=== PATIENT | male | born 1940 | race Caucasian/White ===

== ENCOUNTER 2019-06-30 11:15 | Emergency (ER) | payer MEDICARE, SELFPAY ==
--- NOTE | 2019-06-30 11:27 | ED.URI ---
HPI - URI/Sore Throat General Chief Complaint: Upper Respiratory Infection Stated Complaint: sinus/allergies Time Seen by Provider: 06/30/19 11:40 Source: patient and RN notes reviewed Mode of arrival: ambulatory Limitations: no limitations History of Present Illness HPI Narrative: 78-year-old male presents with concern for 2-month history of sinus congestion, postnasal drainage, rhinorrhea, sinus pressure. Reports he has been taking Coricidin with no relief. Denies taking any antihistamines. Denies fever, cough, shortness of breath, body aches, sore throat. MD elicited complaint: nasal congestion Related Data Home Medications Medication Instructions Recorded Confirmed Aspir-81 06/30/19 Ocuvite 06/30/19 amlodipine 06/30/19 atorvastatin 06/30/19 cyclosporine [Restasis] 06/30/19 cyclosporine [Restasis] 1 drp OPHTHALMIC (EYE) Q12H 06/30/19 06/30/19 tamsulosin mg PO 06/30/19 Allergies Allergy/AdvReac Type Severity Reaction Status Date / Time BEE STINGS Allergy Severe SEVERE Uncoded 02/24/14 10:50 LOCAL REACTION Review of Systems Review of Systems: Narrative: CONSTITUTIONAL: Denies malaise, chills, sweats, or fever. EYES: Denies visual changes, redness, or discharge. ENT: Reports rhinorrhea, congestion, sinus pain, ear fullness. Denies otalgia and sore throat. CARDIOVASCULAR: Denies chest pain, palpitations, or edema. RESPIRATORY: Denies cough or dyspnea. GASTROINTESTINAL: Denies abdominal pain, nausea, vomiting, diarrhea SKIN: Denies rash or itching. MUSCULOSKELETAL: Denies myalgia. NEUROLOGIC: Denies headache. All systems reviewed & are unremarkable except as noted in HPI and below PMFSH Comments At time of signature, agree with nursing past medical, surgical, social and family history. There is no relevant family history pertinent to the presenting complaint Exam Narrative: Exam Narrative: GENERAL: Well-appearing, well-nourished, and in no acute distress. HEAD: Normocephalic EYES: PERRLA, conjunctivae clear ENT: Nares clear, turbinates edematous and erythematous, purulent discharge. Mucous membranes moist. TM pearly noland with dull light reflex bilaterally; no tragal tenderness. Oropharynx not erythematous without lesions. Tonsils not enlarged and without exudate, no drooling, no hoarseness, no trismus, uvula midline. NECK: Supple. No lymphadenopathy CHEST: Clear to auscultation, breath sounds equal. No wheezing, rhonchi, rales, or stridor. No respiratory distress, speaks in full sentences. HEART: Regular rate and rhythm. No murmur heard. SKIN: Warm, dry, no rash. NEURO: Alert and oriented x3. PSYCH: Normal mood and affect Course Course Emergency Course: Patient is aware of diagnosis, understands and agrees to treatment plan. Anticipatory guidance given. Patient agrees to follow-up as directed and is aware of reasons to seek care at the emergency department. Portions of this record may have been created with voice recognition software Vital Signs Vital signs: Vital Signs Temperature 98.2 F 06/30/19 11:31 Pulse Rate 73 06/30/19 11:31 Respiratory Rate 16 06/30/19 11:31 Blood Pressure 127/72 06/30/19 11:31 Pulse Oximetry 97 06/30/19 11:31 Temperature 98.2 F 06/30/19 11:31 Pulse Rate 73 06/30/19 11:31 Respiratory Rate 16 06/30/19 11:31 Blood Pressure 127/72 06/30/19 11:31 Pulse Oximetry 97 06/30/19 11:31 Reviewed. MDM - URI/Sore Throat MDM Narrative Medical decision making narrative: Differential diagnosis considered: Strep pharyngitis, allergic rhinitis, upper respiratory tract infection, sinusitis, rhinosinusitis, nasopharyngitis. viral pharyngitis, otitis media, otitis externa, pneumonia, bronchitis, viral cough syndrome, viral syndrome, and influenza. Exam findings show no acute concerns or changes; patient is non-toxic appearing and is in no distress. Patient is appropriate for outpatient treatment and follow-up. Critical Care Time Critical Car
[2019-06-30 11:31] VITALS: BP 127/72; PULSE 73; RESP 16; TEMP 36.8; O2SAT 97
== END 2019-06-30 11:57 | disposition home or self-care (01) ==
PROVIDERS: Emergency Provider Nurse Practitioner; PCP Internal Medicine
DX: J01.90 Acute sinusitis, unspecified (principal); B96.89 Other specified bacterial agents as the cause of diseases classified elsewhere; E78.00 Pure hypercholesterolemia, unspecified; I10 Essential (primary) hypertension; N40.0 Benign prostatic hyperplasia without lower urinary tract symptoms; H04.129 Dry eye syndrome of unspecified lacrimal gland
CPT/HCPCS: 99213; G0463

== ENCOUNTER 2019-12-06 12:50 | Emergency (ER) | payer MEDICARE, SELFPAY ==
--- NOTE | ~2019-12-06 | XR_ITS ---
EXAMINATION: XR chest 2V EXAM DATE: 12/06/2019 14:16 INDICATION: Frontal wall intermittent chest pain, symptoms 2 weeks. TECHNIQUE: Frontal and lateral projections of the chest obtained and reviewed. Comparison is made to prior examination from 12/09/2017. FINDINGS: The lungs are clear. There are no pleural effusions. The cardiomediastinal silhouette is within normal limits. There is no pneumothorax suspected. The bones and soft tissues are unremarkab le. IMPRESSION: No acute cardiopulmonary findings. Reviewed, dictated and finalized at location A.
--- NOTE | 2019-12-06 12:53 | ECG_ITS ---
Measurements Intervals [place] Rate: 65 P: 15 GA: 146 QRS: -16 QRSD: 96 T: 25 QT: 388 QTc: 404 Interpretive Statements SINUS RHYTHM BASELINE WANDER- V1 NORMAL ECG Electronically Signed On 12-06-2019 12:58:19 CDT by Titus Thomas D.O.
[2019-12-06 12:56] VITALS: BP 146/73; PULSE 65; RESP 16; TEMP 36.5; O2SAT 100
[2019-12-06 13:17] LABS: Basophils Percent Auto 0.3 % (0.2-1.2); Eosinophils Percent Auto 0.5 % (0-4.4); Hematocrit 37.4 % (42.0-52.0); Hemoglobin 12.6 g/dL (14.0-18.0); Immature Granulocyte Absolute 0.01 K/mm3 (0.00-0.031); Immature Granulocyte Percent A 0.1 % (0-0.5); Lymphocytes Absolute Auto 1.91 K/mm3 (0.9-3.2); Lymphocytes Percent Auto 25.4 % (18.3-44.2); Mean Corpuscular HGB Conc 33.7 g/dl (32-36); Mean Corpuscular Hemoglobin 32.1 pg (26-34); Mean Corpuscular Volume 95.4 fl (80-100); Mean Platelet Volume 9.8 fl (7.4-10.4); Monocytes Absolute Auto 0.6 K/mm3 (0.1-0.6); Monocytes Percent Auto 7.7 % (2.6-8.5); Platelet Count Result 199 k/mm3 (150-375); Red Blood Count 3.92 M/mm3 (4.6-6.20); Red Cell Distribution Width 12.8 % (11.5-14.5); White Blood Count 7.5 K/mm3 (4.5-10.0)
[2019-12-06 13:21] LABS: Partial Thromboplastin Time 26.4 SECONDS (22.3-36.8); Prothrombin Time 12.7 Seconds (11.1-14.7)
[2019-12-06 13:28] LABS: Anion Gap 7 mmol/L (8-16); Blood Urea Nitrogen 31 mg/dL (9-20); Calcium 8.9 mg/dL (8.4-10.2); Carbon Dioxide 29 mmol/L (22-30); Chloride 106 mmol/L (98-107); Estimated CRCL calculation 41 ml/min; Estimated Glomerular Filt Rate 58; Glucose 106 mg/dL (75-110); Sodium 142 mmol/L (137-145)
[2019-12-06 13:38] LABS: Troponin I < 0.012 ng/mL (0.000-0.034)
[2019-12-06 15:12] VITALS: BP 190/74; PULSE 68; RESP 18; TEMP 36.7; O2SAT 100
[2019-12-06] MEDS: ASPIRIN 81 MG CHEWABLE TABLET 324 MG PO (15:19)
--- NOTE | 2019-12-06 16:03 | ED.GENADULT ---
HPI - General Adult General Chief complaint: Chest Pain Stated complaint: cp while golfing Time Seen by Provider: 12/06/19 15:17 Source: patient History of Present Illness HPI narrative: Patient is a 78 y/o male complaining of mid sternal chest pain starting approximately 4 hours ago. He states that he was golfing when it occurred. He states that his pain was like a pressure and he rates it as 5/10. There is no pain radiation, no alleviating or exacerbating factor. His pain has resolved spontaneously. It lasted approximately 1 hour. He has no SOB, nausea, vomiting or sweating. Related Data Home Medications Medication Instructions Recorded Confirmed Aspir-81 06/30/19 Ocuvite 06/30/19 amlodipine 06/30/19 atorvastatin 06/30/19 Allergies Allergy/AdvReac Type Severity Reaction Status Date / Time BEE STINGS Allergy Severe SEVERE Uncoded 08/03/19 13:28 LOCAL REACTION Review of Systems Constitutional: Constitutional: Denies chills, Denies fever(s), Denies headache(s) and Denies weakness Eyes: Eyes: Denies blurry vision ENT: Denies headache(s) and Denies neck pain Cardiovascular: Cardiovascular: Reports chest pain and Denies dyspnea Respiratory: Respiratory: Denies cough and Denies dyspnea Gastrointestinal: Gastrointestinal: Denies abdominal pain, Denies diarrhea, Denies nausea and Denies vomiting Genitourinary: Genitourinary: Denies hematuria and Denies dysuria Musculoskeletal: Musculoskeletal: Denies back pain and Denies neck pain Neurologic: Denies headache(s) and Denies weakness Exam Const: General: no acute distress and well developed Orientation/consciousness: oriented to person, oriented to place, oriented to time and patient oriented x3 HENMT: Head: normocephalic Ears: external ears normal General nose exam: Normal external nose present Eyes: General: appearance normal, both eyes and all related structures Conjunctivae: conjunctivae normal Neck: Neck: normal visual inspection and full ROM Chest: Chest palpation & inspection: normal inspection of the chest and no tenderness Resp: Effort & Inspection: normal respiratory effort Auscultation: clear to auscultation bilaterally Cardio: Rate: regular rate Rhythm: regular rhythm GI: GI Palp: No abdominal tenderness and Yes Soft to palpation Skin: General skin exam: normal color and turgor normal Neuro: General: oriented to person, oriented to place, oriented to time and patient oriented x3 Cognition (Neuro): normal cognition Extrem: General: normal to inspection, full ROM and no pedal edema Psych: Appearance: grossly normal Mental Status: mental status grossly normal Affect: normal affect Course Reevaluation(s) Reevaluation #1: Rechecked. Patient feels well with no chest pain. 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 Instructed patient to return if his symptoms worsen. Date: 12/06/19 Time: 17:55 Vital Signs Vital signs: Vital Signs Temperature 36.5 C 12/06/19 12:56 Pulse Rate 65 12/06/19 12:56 Respiratory Rate 16 12/06/19 12:56 Blood Pressure 146/73 H 12/06/19 12:56 Pulse Oximetry 100 12/06/19 12:56 Temperature 36.7 C 12/06/19 15:12 Pulse Rate 78 12/06/19 18:08 Respiratory Rate 18 12/06/19 18:08 Blood Pressure 132/78 12/06/19 18:08 Pulse Oximetry 99 12/06/19 18:08 Medical Decision Making Vital Signs Vital Signs: Vital Signs Temperature 36.5 C 12/06/19 12:56 Pulse Rate 65 12/06/19 12:56 Respiratory Rate 16 12/06/19 12:56 Blood Pressure 146/73 H 12/06/19 12:56 Pulse Oximetry 100 12/06/19 12:56 Temperature 36.7 C 12/06/19 15:12 Pulse Rate 78 12/06/19 18:08 Respiratory Rate 18 12/06/19 18:08 Blood Pressure 132/78 12/06/19 18:08 Pulse Oximetry 99 12/06/19 18:08 Lab Data Result diagrams: 12/06/19 13:02 12/06/19 13:02
[2019-12-06 16:38] LABS: Troponin I < 0.012 ng/mL (0.000-0.034)
[2019-12-06 18:08] VITALS: BP 132/78; PULSE 78; RESP 18; O2SAT 99
== END 2019-12-06 18:09 | disposition home or self-care (01) ==
PROVIDERS: Emergency Medicine; Emergency Provider Emergency Medicine; PCP Internal Medicine
DX: R07.89 Other chest pain (principal); Z79.82 Long term (current) use of aspirin
CPT/HCPCS: 36415; 71046; 80048; 84484; 85025; 85610; 85730; 93005; 99284; A9270

== ENCOUNTER 2020-01-05 01:49 | Outpatient (CLI) | payer MEDICARE, SELFPAY ==
[2020-01-05 18:17] LABS: SARS-CoV-2 RNA PCR Negative
== END 2020-01-05 01:50 | disposition home or self-care (01) ==
LOC: ANHCOVIDDT 01:50
PROVIDERS: PCP Internal Medicine; Visit Provider Internal Medicine Gastroenterology
DX: Z01.812 Encounter for preprocedural laboratory examination (principal); Z20.828 Contact with and (suspected) exposure to other viral communicable diseases
CPT/HCPCS: 87635; C9803; U0003

== ENCOUNTER 2020-01-06 01:27 | Day surgery (SDC) | payer MEDICARE, SELFPAY ==
[2020-01-04 12:23] VITALS: BMI 25.1
--- NOTE | 2020-01-05 08:10 | P.PNAN_ITS ---
Anes - Initial Pre Proc Eval Procedure: Operation Date: 01/06/20 11:00 Proposed Procedures p Esophagogastroduodenoscopy - Nick Silva MD Date/Time: 01/05/20 08:10 Surgeon: Nick Silva MD Pre Op Diagnosis: Epigastric Pain Patient Data Age: 79 Gender: M Height: 1.7 m Weight: 72.7 kg Allergies Allergy/AdvReac Type Severity Reaction Status Date / Time BEE STINGS Allergy Severe SEVERE Uncoded 01/04/20 13:42 LOCAL REACTION Home Medications Medication Instructions Recorded Confirmed Type amlodipine 5 mg PO DAILY 06/30/19 01/04/20 History atorvastatin 80 mg PO DAILY 06/30/19 01/04/20 History aspirin [Adult Aspirin] 81 mg PO DAILY 01/04/20 01/04/20 History cyclosporine [Restasis] 1 drp OPHTHALMIC (EYE) BID 01/04/20 01/04/20 History vitamin A-vitamin C-vit E-min 1 tablet PO DAILY 01/04/20 01/04/20 History [Ocuvite] Patient hx anesthesia problems: none Family hx anesthesia problems: none [facility] Past Medical History Medical History (Updated 01/05/20 @ 08:10 by Armani Sandhu DO) Hyperlipidemia Hypertension Osteoarthritis PUD (peptic ulcer disease) Social History Social History Smoking status: Never smoker Alcohol intake: current Drinks per week: 4 Substance use: never Substance use type: does not use Living arrangements: with family Spiritual care concerns: No Anes - Eval Final PreProcedure Day of Procedure 01/05/20 08:10 Patient weight: overweight Heart: regular rate and rhythm Lungs: clear to auscultation and normal air movement Airway: Mallampati scale class II Neurological: alert and oriented Last oral intake: >/= 8 hours ASA classification: II Emergent: no Anesthetic plan: proceed Anesthesia type and monitoring: general GIVS and standard monitoring Informed Consent: The patient's anesthetic plan and its attendant risks and benefits were discussed with the patient/family/POA. Questions were solicited and answers provided to the satisfaction of the patient/family/POA.
[2020-01-06 10:14] VITALS: BP 146/65; PULSE 60; RESP 12; TEMP 36.7; O2SAT 100
--- NOTE | 2020-01-06 10:21 | PM.HPGS ---
History of Present Illness History of Present Illness Consent: Risks, benefits, and alternatives have been discussed and questions answered. Patient agrees to proceed with procedure. Chief complaint: Epigastric Pain Narrative: Luis Miguel Anguiano is a 79 year old W male referred for gastroscopy for evaluation of atypical noncardiac chest pain question gastroesophageal reflux and epigastric pain. Patient had cardiac evaluation that was negative. He has had no nausea vomiting or hematemesis. Denies any nonsteroidal inflammatory drugs on a regular basis. No dysphagia odynophagia. Patient is scheduled for an ultrasound of his gallbladder tomorrow had blood work checked recently results are pending. patient seen in the office 2 days ago with unremarkable exam PMFSH Past Medical History Medical History Hyperlipidemia Hypertension Osteoarthritis PUD (peptic ulcer disease) Social History Social History Smoking status: Never smoker Alcohol intake: current Drinks per week: 4 Substance use: never Substance use type: does not use Living arrangements: with family Spiritual care concerns: No Meds Home Medications and Allergies Home Medications Medication Instructions Recorded Confirmed Type amlodipine 5 mg PO DAILY 06/30/19 01/06/20 History atorvastatin 80 mg PO DAILY 06/30/19 01/04/20 History aspirin [Adult Aspirin] 81 mg PO DAILY 01/04/20 01/04/20 History cyclosporine [Restasis] 1 drp OPHTHALMIC (EYE) BID 01/04/20 01/04/20 History vitamin A-vitamin C-vit E-min 1 tablet PO DAILY 01/04/20 01/04/20 History [Ocuvite] Allergies Allergy/AdvReac Type Severity Reaction Status Date / Time BEE STINGS Allergy Severe SEVERE Uncoded 01/06/20 10:12 LOCAL REACTION Vital Signs Vital Signs - 24 hr 01/06/20 10:14 Temperature 36.7 C Pulse Rate 60 Respiratory Rate 12 Blood Pressure 146/65 H Pulse Oximetry 100 Exam Const: Orientation/consciousness: patient oriented x3 Resp: Auscultation: clear to auscultation bilaterally Cardio: Rate: regular rate Rhythm: regular rhythm Heart sounds: no murmurs GI: GI Palp: Yes Soft to palpation, No Tenderness to palpation present (GI), Yes No hepatosplenomegaly present and No Palpable mass present Auscultation: normal bowel sounds Neuro: General: patient oriented x3 and no focal motor deficits Extrem: General: no pedal edema Assessment and Plan Additional Plan EGD for evaluation of atypical chest pain epigastric pain and negative cardiac evaluation
[2020-01-06] MEDS: LACTATED RINGERS 1,000 ML 150 ML IV CONT (10:24)
[2020-01-06 11:16] VITALS: BP 112/63; PULSE 60; RESP 16; O2SAT 100
[2020-01-06 11:26] VITALS: BP 118/60; PULSE 62; RESP 18; O2SAT 100
[2020-01-06 11:36] VITALS: BP 120/62; PULSE 63; RESP 18; O2SAT 100
== END 2020-01-06 11:50 | disposition home or self-care (01) ==
PROVIDERS: PCP Internal Medicine; Visit Provider Internal Medicine Gastroenterology
PROC: 0DJ08ZZ Inspection of Upper Intestinal Tract, Via Natural or Artificial Opening Endoscopic (ICD-10-PCS; CPT 43235; principal; 2020-01-06 11:00)
DX: K29.50 Unspecified chronic gastritis without bleeding (principal); K29.80 Duodenitis without bleeding; I10 Essential (primary) hypertension; E78.5 Hyperlipidemia, unspecified; Z87.11 Personal history of peptic ulcer disease; Z79.82 Long term (current) use of aspirin
CPT/HCPCS: 43239; 87081; J7120

== ENCOUNTER → 2020-01-07 07:45 | Outpatient (CLI) | payer MEDICARE, SELFPAY ==
--- NOTE | ~2020-01-07 | US_ITS ---
EXAMINATION: US right upper quadrant DATE: 01/07/2020 08:18 INDICATION: Abdominal pain. TECHNIQUE: Multiple grayscale and Doppler ultrasound images of the abdomen were obtained. COMPARISON: None FINDINGS: The abdominal aorta is normal in caliber. The visualized portions of the head and body of t he pancreas are normal. The liver is normal without focal lesion. There is normal flow in main portal vein. The gallbladder is normal in size. No gallstones or gallbladder wall thickening. There was no sonographic Morris sign. The common duct is normal and measures 5 mm. IMPRESSION: 1. Normal right upper quadrant ultrasound. Reviewed, dictated and finalized at location A.
== END ==
PROVIDERS: PCP Internal Medicine; Visit Provider Internal Medicine Gastroenterology
DX: R10.9 Unspecified abdominal pain (principal)
CPT/HCPCS: 76705

== ENCOUNTER 2020-07-23 23:16 | Emergency (ER) | payer MEDICARE, SELFPAY ==
--- NOTE | ~2020-07-23 | CT_ITS ---
EXAMINATION: CT brain wo con DATE: 07/24/2020 00:41 INDICATION: Dizziness. TECHNIQUE: Computed tomography (CT) of the head was performed without intravenous contrast. The mA wa s adjusted according to patient size. Iterative reconstruction technique was employed. The dose-lengt h product was 681.00 mGy-cm. COMPARISON: Sinuses CT 08/01/2012 FINDINGS: There is no intracranial hemorrhage, acute infarction, or abnormal intracranial mass lesion . The ventricles are normal in size. There are likely changes of ocular lens replacement surgeries. T here is mucosal thickening in the paranasal sinuses. Right maxillary sinus demonstrates thickening an d sclerosis of the sinus moody and volume loss, consistent with chronic sinusitis. There is an old he aled left nasal bone fracture. The mastoid air cells are normal. There are likely changes of ocular l ens replacement surgeries. IMPRESSION: 1. Normal brain. 2. Chronic sinusitis. Reviewed, dictated and finalized at location A.
[2020-07-23 23:21] VITALS: BP 142/62; PULSE 61; RESP 13; TEMP 36.4; O2SAT 100
--- NOTE | 2020-07-23 23:28 | ECG_ITS ---
Measurements Intervals [place] Rate: 58 P: 51 [place]: 170 QRS: -1 QRSD: 101 T: 44 QT: 439 QTc: 431 Interpretive Statements SINUS BRADYCARDIA INCOMPLETE RIGHT BUNDLE BRANCH BLOCK BORDERLINE ECG Electronically Signed On 07-24-2020 6:21:31 CDT by Titus Thomas D.O.
[2020-07-24 00:53] VITALS: BP 134/53; PULSE 65; RESP 16; O2SAT 100
[2020-07-24] MEDS: SODIUM CHLORIDE 0.9% IV 1,000 ML 999 ML IV CONT (00:53)
[2020-07-24] MEDS: MECLIZINE HCL 25 MG TABLET PO (00:53)
[2020-07-24 01:23] LABS: Basophils Percent Auto 0.3 % (0.2-1.2); Eosinophils Absolute Auto 0.1 K/mm3 (0-0.3); Eosinophils Percent Auto 1.2 % (0-4.4); Hematocrit 38.6 % (42.0-52.0); Hemoglobin 12.8 g/dL (14.0-18.0); Immature Granulocyte Absolute 0.03 K/mm3 (0.00-0.031); Immature Granulocyte Percent A 0.3 % (0-0.5); Lymphocytes Absolute Auto 1.35 K/mm3 (0.9-3.2); Lymphocytes Percent Auto 13.2 % (18.3-44.2); Mean Corpuscular HGB Conc 33.2 g/dl (32-36); Mean Corpuscular Hemoglobin 32.2 pg (26-34); Mean Corpuscular Volume 97.2 fl (80-100); Mean Platelet Volume 10.1 fl (7.4-10.4); Monocytes Absolute Auto 0.8 K/mm3 (0.1-0.6); Monocytes Percent Auto 7.8 % (2.6-8.5); Neutrophils Absolute Auto 7.9 K/mm3 (1.3-6.7); Neutrophils Percent Auto 77.2 % (45.5-73.1); Platelet Count Result 191 k/mm3 (150-375); Red Blood Count 3.97 M/mm3 (4.6-6.20); Red Cell Distribution Width 12.8 % (11.5-14.5); White Blood Count 10.3 K/mm3 (4.5-10.0)
[2020-07-24 01:31] LABS: Magnesium 2.1 mg/dL (1.6-2.3)
[2020-07-24 01:32] LABS: Lactic Acid Reflex 0.7 mmol/L (0.7-2.1)
[2020-07-24 01:34] LABS: Alanine Aminotransferase 18 U/L (4-50); Albumin Level 3.9 g/dL (3.5-5.1); Alkaline Phosphatase 77 U/L (38-126); Anion Gap 4 mmol/L (8-16); Aspartate Amino Transferase 33 U/L (17-59); Bilirubin,Total < 0.1 mg/dL (0.2-1.3); Blood Urea Nitrogen 28 mg/dL (9-20); Calcium 8.8 mg/dL (8.4-10.2); Carbon Dioxide 29 mmol/L (22-30); Chloride 105 mmol/L (98-107); Estimated CRCL calculation 35 ml/min; Estimated Glomerular Filt Rate 49; Glucose 124 mg/dL (75-110); Potassium 4.1 mmol/L (3.4-5.0); Sodium 138 mmol/L (137-145)
[2020-07-24 01:44] LABS: Troponin I < 0.012 ng/mL (0.000-0.034)
[2020-07-24 01:45] LABS: Add Urine Microscopic? YES; Appearance Urine Cloudy (Clear); Bacteria Urine Trace /hpf; Bilirubin Urine Negative (Negative); Color Urine Yellow (Yellow); Glucose Urine UA Negative (Negative); Ketones Urine Negative (Negative); Leukocyte Esterase Ur Trace LEU/UL (Negative); Mucus Urine Rare /lpf; Nitrate Urine Negative (Negative); Protein Urine 1+ mg/dL (Negative); Specific Grav Ur 1.023 (1.001-1.035); Squamous Epithelial Cell Urine Rare /hpf (Few); Urobilinogen Urine Negative mg/dL (<2.0)
[2020-07-24 01:47] LABS: Blood Urine Negative (Negative)
--- NOTE | 2020-07-24 01:54 | ED.GENADULT ---
HPI - General Adult General Chief complaint: Dizziness Stated complaint: dizziness Time Seen by Provider: 07/24/20 00:07 History of Present Illness HPI narrative: Patient is 79-year-old gentleman who presents the emergency department with chief complaint of dizziness. Patient reports he is currently being treated for a UTI and reports this evening he woke up and suddenly had onset of a dizziness/lightheaded feeling. Patient states that it was very severe initially but subsequently resolved. The patient states that currently he feels much better and is not having symptoms reports still a little bit there whenever he will turn his head from side to side. Patient denies vomiting denies diarrhea denies focal neurological deficit. Related Data Home Medications Medication Instructions Recorded Confirmed amlodipine 5 mg PO DAILY 06/30/19 01/06/20 atorvastatin 80 mg PO DAILY 06/30/19 01/04/20 Restasis 1 drp OPHTHALMIC (EYE) BID 01/04/20 01/04/20 aspirin 81 mg PO DAILY 01/04/20 01/04/20 vitamin A-vitamin C-vit E-min 1 tablet PO DAILY 01/04/20 01/04/20 Allergies Allergy/AdvReac Type Severity Reaction Status Date / Time BEE STINGS Allergy Severe SEVERE Uncoded 01/06/20 10:12 LOCAL REACTION Review of Systems Review of Systems: Narrative: A 10 system review of systems was completed on the patient and is negative except for what is stated in the HPI. Nursing and ancillary documentation was reviewed. [facility] Past Medical History Medical History Hyperlipidemia Hypertension Osteoarthritis PUD (peptic ulcer disease) Social History Social History Smoking status: Never smoker Alcohol intake: current Drinks per week: 4 Substance use: never Substance use type: does not use Spiritual care concerns: No Exam Narrative: Exam Narrative: GENERAL: Well-appearing, well-nourished, and in no acute distress. HEAD: Normocephalic, atraumatic. EYES: PERRLA and EOMI. ENT: Nares clear, no rhinorrhea or epistaxis. Mucous membranes moist. NECK: Supple. CHEST: Clear to auscultation. No respiratory distress. HEART: Regular rate and rhythm. No murmur heard. Normal peripheral pulses. ABDOMEN: Soft, nontender, nondistended, normal active bowel sounds. EXTREMITIES: Normal range of motion. No edema. SKIN: Warm, dry, no rash. NEURO: No focal deficits. Alert and oriented x3. PSYCH: Normal mood and affect. Course Vital Signs Vital signs: Vital Signs Temperature 36.4 C L 07/23/20 23:21 Pulse Rate 61 07/23/20 23:21 Respiratory Rate 13 07/23/20 23:21 Blood Pressure 142/62 H 07/23/20 23:21 Pulse Oximetry 100 07/23/20 23:21 Temperature 36.4 C L 07/23/20 23:21 Pulse Rate 73 07/24/20 02:03 Respiratory Rate 17 07/24/20 02:03 Blood Pressure 126/56 L 07/24/20 02:03 Pulse Oximetry 98 07/24/20 02:03 Medical Decision Making Vital Signs Vital Signs: Vital Signs Temperature 36.4 C L 07/23/20 23:21 Pulse Rate 61 07/23/20 23:21 Respiratory Rate 13 07/23/20 23:21 Blood Pressure 142/62 H 07/23/20 23:21 Pulse Oximetry 100 07/23/20 23:21 Temperature 36.4 C L 07/23/20 23:21 Pulse Rate 73 07/24/20 02:03 Respiratory Rate 17 07/24/20 02:03 Blood Pressure 126/56 L 07/24/20 02:03 Pulse Oximetry 98 07/24/20 02:03 Lab Data Result diagrams: 07/24/20 01:03 07/24/20 01:03 Labs: Lab Results 07/24/20 07/24/20 07/24/20 Range/Units 01:03 01:03 01:03 WBC 10.3 H (4.5-10.0) K/mm3 RBC 3.97 L (4.6-6.20) M/mm3 Hgb 12.8 L (14.0-18.0) g/dL Hct 38.6 L (42.0-52.0) % MCV 97.2 (80-100) fl MCH 32.2 (26-34) pg MCHC 33.2 (32-36) g/dl RDW 12.8 (11.5-14.5) % Plt Count 191 (150-375) k/mm3 MPV 10.1 (7.4-10.4) fl Immature Gran % (Auto) 0.3 (0-0.5) % Neut % (Auto) 77.2 H (45
[2020-07-24 02:03] VITALS: BP 126/56; PULSE 73; RESP 17; O2SAT 98
--- NOTE | 2020-07-24 02:37 | PC.NURSE ---
Pt ambulated in [place] to determine gait neuro status. Pt ambulated well with a steady gait and had no complaints of dizziness, lightheadedness aor nausea. Pt now back in room resting on cart. EDMD notified of pt status.
--- NOTE | 2020-07-24 02:38 | PC.NURSE ---
pt ambulated w/ no difficulties. aware.
[2020-07-24 03:02] VITALS: BP 140/63; PULSE 80; RESP 15; O2SAT 99
--- NOTE | 2020-07-24 03:03 | PC.NURSE ---
Pt to call for transportation. Pt was able to ambulate to waiting room without difficulty. Pt note to be alert and oriented x4 and in no obvious distress. Vitals are stable.
[2020-07-24 03:04] VITALS: BP 140/63; PULSE 80; RESP 15; O2SAT 99
== END 2020-07-24 03:05 | disposition home or self-care (01) ==
PROVIDERS: Emergency Provider Emergency Medicine; PCP Internal Medicine
DX: R42 Dizziness and giddiness (principal); N39.0 Urinary tract infection, site not specified; E78.5 Hyperlipidemia, unspecified; I10 Essential (primary) hypertension; M19.90 Unspecified osteoarthritis, unspecified site; Z87.11 Personal history of peptic ulcer disease; I45.10 Unspecified right bundle-branch block; R00.1 Bradycardia, unspecified; J32.9 Chronic sinusitis, unspecified
CPT/HCPCS: 36415; 70450; 80053; 81001; 83605; 83735; 84484; 85025; 87086; 93005; 96360; 99284; A9270; J7030

== ENCOUNTER 2021-08-23 03:04 | Emergency (ER) | payer MEDICARE, SELFPAY ==
[2021-08-23 03:03] VITALS: BP 157/69; PULSE 56; RESP 14; TEMP 36.4; O2SAT 94
--- NOTE | 2021-08-23 03:14 | ECG_ITS ---
Measurements Intervals [place] Rate: 55 P: 12 DC: 146 QRS: -14 QRSD: 110 T: 5 QT: 428 QTc: 409 Interpretive Statements SINUS BRADYCARDIA COMPARED TO ECG 07/23/2020 23:31:05 NO SIGNIFICANT CHANGES Electronically Signed On 08-23-2021 7:34:29 CDT by Doe Alvarez MD
--- NOTE | 2021-08-23 03:24 | ED.DIZZY ---
HPI - Dizziness General Chief Complaint: Dizziness Stated Complaint: dizzy x 1 hour Time Seen by Provider: 08/23/21 03:10 Source: patient Mode of arrival: EMS Limitations: no limitations History of Present Illness HPI Narrative: 80-year-old with a history of hypertension, benign positional vertigo was brought in from home by ambulance with complaints of dizziness. Patient states that he has this ongoing problem for past few weeks , was seen at [facility] for the same few days ago and was given medication. Patient states that in the middle of the night he woke up with dizziness, he states he laid on the bed for 1 hour took his medication and still continued to feel dizzy decided to call 911. On route to the ER patient started feeling better at that time he came to the ER he said his symptoms have much subsided. He denies any headache, chest pain, shortness of breath. Denies abdominal pain, nausea or vomiting. Related Data Home Medications Medication Instructions Recorded Confirmed amlodipine 5 mg tablet 5 mg PO DAILY 06/30/19 01/06/20 atorvastatin 80 mg tablet 80 mg PO DAILY 06/30/19 01/04/20 aspirin 81 mg tablet 81 mg PO DAILY 01/04/20 01/04/20 cyclosporine 0.05 % eye drops in a 1 drp ophthalmic (eye) BID 01/04/20 01/04/20 dropperette (Restasis) vitamin A-vitamin C-vit E-min 1 tablet PO DAILY 01/04/20 01/04/20 tablet Allergies Allergy/AdvReac Type Severity Reaction Status Date / Time BEE STINGS Allergy Severe SEVERE Uncoded 08/23/21 03:08 LOCAL REACTION Review of Systems Review of Systems: All systems reviewed & are unremarkable except as noted in HPI and below Constitutional: Constitutional: Reports no additional constitutional complaints Eyes: Eyes: Reports no additional eye complaints ENT: Reports system reviewed and no additional complaints, except as documented Cardiovascular: Cardiovascular: Reports no additional cardiovascular complaints Respiratory: Respiratory: Reports no additional respiratory complaints Gastrointestinal: Gastrointestinal: Reports no additional gastrointestinal complaints Musculoskeletal: Musculoskeletal: Reports no additional musculoskeletal complaints Neurologic: Reports system reviewed and no additional complaints, except as documented Psychiatric: Psychiatric: Reports no additional psychiatric complaints Endocrine: Endocrine: Reports no additional endocrine complaints Hematologic/Lymphatic: Hematologic/Lymphatic: Reports no additional hematologic/lymphatic complaints [facility] Past Medical History Medical History Hyperlipidemia Hypertension Osteoarthritis PUD (peptic ulcer disease) Social History Social History Smoking status: Never smoker Alcohol intake: current Drinks per week: 4 Substance use: never Substance use type: does not use Spiritual care concerns: No Exam Narrative: GENERAL: Well-appearing, well-nourished, and in no acute distress. HEAD: Normocephalic, atraumatic. EYES: PERRLA and EOMI. NECK: Supple. CHEST: Clear to auscultation. No respiratory distress. HEART: Regular rate and rhythm. No murmur heard. Normal peripheral pulses. ABDOMEN: Soft, nontender, nondistended, normal active bowel sounds. EXTREMITIES: Normal range of motion. No edema. SKIN: Warm, dry, no rash. NEURO: No focal deficits. Alert and oriented x3. PSYCH: Normal mood and affect. Course Course Emergency Course: Patient upon arrival to the ER is symptoms much subsided. He wants to go home. Vital Signs Vital signs: Vital Signs Temperature 36.4 C L 08/23/21 03:03 Pulse Rate 56 L 08/23/21 03:03 Respiratory Rate 14 08/23/21 03:03 Blood Pressure 157/69 H 08/23/21 03:03 Pulse Oximetry 94 08/23/21 03:03 Oxygen Delivery Room Air 08/23/21 03:03 Temperature 36.4 C L 08/23/21 03:03 Pulse Rate 56 L
[2021-08-23 03:50] VITALS: BP 136/70; PULSE 60; RESP 16; O2SAT 98
== END 2021-08-23 03:51 | disposition home or self-care (01) ==
LOC: ANHED 03:37
PROVIDERS: Emergency Provider Family Medicine; PCP Internal Medicine
DX: H81.10 Benign paroxysmal vertigo, unspecified ear (principal); I10 Essential (primary) hypertension; E78.5 Hyperlipidemia, unspecified; M19.90 Unspecified osteoarthritis, unspecified site; Z87.11 Personal history of peptic ulcer disease; Z79.82 Long term (current) use of aspirin; R00.1 Bradycardia, unspecified
CPT/HCPCS: 93005; 96374; 99284

== ENCOUNTER 2022-12-19 15:27 | Inpatient (IN) | payer MEDICARE, SELFPAY ==
[2022-12-19] VITALS (9 sets, daily range): BP systolic 112–152; BP diastolic 48–86; PULSE 80–110; RESP 15–24; TEMP 36.8–38.1; O2SAT 90–100
--- NOTE | ~2022-12-19 | XR_ITS ---
XR chest 1V portable 12/20/2022 18:18 Indication: Oxygen desaturation Procedure: AP portable chest Comparison: Comparison to multiple prior studies sequentially, with oldest reviewed study dated 06/18. Findings: There has been progression of right basilar airspace disease, right greater than left. Hear t size normal. No pleural effusion or pneumothorax. No acute osseous abnormality. Impression: 1: Progression of bibasilar airspace disease, consistent with pneumonia. Reviewed, dictated and finalized at location A. Impression: 1: Progression of bibasilar airspace disease, consistent with pneumonia.
--- NOTE | ~2022-12-19 | XR_ITS ---
EXAMINATION: XR chest 1V portable 12/19/2022 19:27 INDICATION: Dyspnea. Cough. PROCEDURE: 2 view chest COMPARISON: 12/06/2019 FINDINGS: The lungs are clear. The cardiomediastinal silhouette is within normal limits. There are no pleural effusions. There is no pneumothorax suspected. IMPRESSION: 1: NO ACUTE CARDIOPULMONARY DISEASE. Reviewed, dictated and finalized at location A.
--- NOTE | ~2022-12-19 | CT_ITS ---
EXAMINATION: CTA chest PE protocol DATE: 12/21/2022 14:05 INDICATION: Bilateral pulmonary infiltrates. Elevated d-dimer. TECHNIQUE: Computed tomography (CT) pulmonary angiogram of the chest was performed with 100 mL Omnipa que-350 intravenous contrast. Additional 3D reconstructions utilizing coronal maximum intensity proje ction (MIP) were performed. Automated exposure control and iterative reconstruction technique were em ployed. The dose-length product was 374.01 mGy-cm. COMPARISON: None FINDINGS: . contrast opacification of the pulmonary arteries. There is mild streak artifact from dense contrast in the superior vena cava and right atrium. Moderate scattered respiratory motion artifact most prom inent at the bilateral lower lung zones where it decreases sensitivity in the basilar segmental and s ubsegmental pulmonary arteries. No pulmonary embolism identified. Right perihilar and bilateral infra hilar consolidation with surrounding patchy groundglass opacities in the right middle and bilateral l ower lobes. Additional patchy groundglass opacities in the right upper lobe. Very small right pleural effusion. No septal line thickening to suggest pulmonary edema. Heart size is normal. Atheroscleroti c coronary artery calcifications. Small pericardial effusion. Thoracic aorta is normal in caliber wit h no dissection. No pathologically enlarged thoracic adenopathy. Calcified left hilar and mediastinal lymph nodes along with multiple splenic calcifications consistent with old granulomatous disease. 1 cm hepatic cyst. Moderate thoracic spondylosis. IMPRESSION: 1. No pulmonary embolism identified. Sensitivity decreased in the bilateral lower lung zones due to s ome respiratory motion. 2. Patchy bilateral lung disease with lower lung predominance and appearance most suggestive of pneum onia. 3. Very small right pleural effusion. 4. Small pericardial effusion. Reviewed, dictated and finalized at location A. IMPRESSION: 1. No pulmonary embolism identified. Sensitivity decreased in the bilateral low er lung zones due to some respiratory motion. 2. Patchy bilateral lung disease with lower lung predominance and appearance mo st suggestive of pneumonia. 3. Very small right pleural effusion. 4. Small pericardial effusion.
[2022-12-19 16:53] LABS: Strep Group A RT-PCR NOT DETECTED (Negative)
--- NOTE | 2022-12-19 19:16 | ECG_ITS ---
Measurements Intervals [place] Rate: 120 P: 48 NE: 152 QRS: -42 QRSD: 98 T: 76 QT: 339 QTc: 480 Interpretive Statements SINUS TACHYCARDIA MARKED LEFT AXIS DEVIATION [QRS AXIS < -30] INCOMPLETE RIGHT BUNDLE BRANCH BLOCK [90+ ms QRS DURATION, TERMINAL R IN V1/V2, 40+ ms S IN I/aVL/V4/V5/V6] ABNORMAL ECG COMPARED TO ECG 08/23/2021 03:08:58 SINUS TACHYCARDIA NOW PRESENT LEFT-AXIS DEVIATION NOW PRESENT Electronically Signed On 12-20-2022 7:34:34 CDT by Xu Kee M.D.
[2022-12-19] MEDS: BENZONATATE 100 MG CAPSULE 200 MG PO (19:33)
[2022-12-19] MEDS: IPRATROPIUM BR 0.02% INH SOLN 0.5 MG/2.5 ML VIAL INHALATION (19:41)
[2022-12-19] MEDS: ALBUTEROL SULFATE NEB 2.5 MG/3 ML INH INHALATION (19:41)
[2022-12-19 19:47] LABS: Basophils Percent Auto 0.1 % (0.2-1.2); Hematocrit 37.4 % (42.0-52.0); Hemoglobin 12.4 g/dL (14.0-18.0); Immature Granulocyte Absolute 0.02 K/mm3 (0.00-0.031); Immature Granulocyte Percent A 0.3 % (0-0.5); Lymphocytes Percent Auto 7.8 % (18.3-44.2); Mean Corpuscular HGB Conc 33.2 g/dl (32-36); Mean Corpuscular Hemoglobin 32.3 pg (26-34); Mean Corpuscular Volume 97.4 fl (80-100); Mean Platelet Volume 10.1 fl (7.4-10.4); Monocytes Percent Auto 13.4 % (2.6-8.5); Neutrophils Absolute Auto 6.1 K/mm3 (1.3-6.7); Neutrophils Percent Auto 78.4 % (45.5-73.1); Platelet Count Result 159 k/mm3 (150-375); Red Blood Count 3.84 M/mm3 (4.6-6.20); Red Cell Distribution Width 13.2 % (11.5-14.5); White Blood Count 7.7 K/mm3 (4.5-10.0)
[2022-12-19 19:49] LABS: Alveolar/Arterial O2 Gradient 67.1 mmHg; Base Excess ABG -0.3 mEq/l (+/-2.0); Fractional Inspired Oxygen 21 %; HCO3 ABG 21.9 mEq/l (22.0-26.0); PCO2 ABG 29.2 mmHg (35.0-45.0); PO2 FiO2 Ratio Arterial Blood 2.27 %; Total Hemoglobin 13.4 g/dL (12.0-18.0); pH ABG 7.493 (7.350-7.450)
[2022-12-19 19:50] LABS: Oxygen Saturation ABG 87.5 % (95.0-100.0)
[2022-12-19 19:51] LABS: Modified Allen's Test Pass; Oxyhemoglobin 85.2 % THb (90.0-100.0); PO2 ABG 47.7 mmHg (80.0-100.0); Site Drawn RIGHT RADIAL
[2022-12-19 19:52] LABS: Device ROOM AIR
[2022-12-19 19:57] LABS: INR 1.1; Prothrombin Time 14.5 Seconds (11.1-14.7)
[2022-12-19 19:58] LABS: Partial Thromboplastin Time 29.4 SECONDS (22.3-36.8)
[2022-12-19 20:00] LABS: Lactic Acid Reflex 1.3 mmol/L (0.7-2.0)
[2022-12-19 20:02] LABS: Alanine Aminotransferase 24 U/L (6-50); Albumin Level 4.3 g/dL (3.5-5.1); Alkaline Phosphatase 75 U/L (38-126); Anion Gap 9 mmol/L (8-16); Aspartate Amino Transferase 42 U/L (17-59); Bilirubin,Total 0.7 mg/dL (0.2-1.3); Blood Urea Nitrogen 23 mg/dL (9-20); Calcium 8.6 mg/dL (8.4-10.2); Carbon Dioxide 25 mmol/L (22-30); Chloride 100 mmol/L (98-107); Estimated CRCL calculation 30 ml/min; Estimated Glomerular Filt Rate 41; Glucose 139 mg/dL (65-110); Magnesium 1.9 mg/dL (1.6-2.3); Sodium 134 mmol/L (137-145)
[2022-12-19 20:10] LABS: NT Pro B Type Natriuretic Pept 459 pg/mL (19.9-100)
--- NOTE | 2022-12-19 20:17 | ED.GENADULT ---
HPI - General Adult General Chief complaint: Upper Respiratory Infection Stated complaint: covid positive/body aches Time Seen by Provider: 12/19/22 19:07 History of Present Illness HPI narrative: Patient is a 81-year-old gentleman who presents the emergency department with chief complaint of fever and shortness of breath. Patient reports that for several days he started feeling body aches and cough and tested positive yesterday for COVID-19 as an outpatient. Patient reports that he is continuing to cough and then coughing up sputum patient states he feels short of breath with this and has chills and body aches. Patient also reports a sore throat. Related Data Home Medications Medication Instructions Recorded Confirmed amlodipine 5 mg tablet 5 mg PO DAILY 06/30/19 07/23/22 atorvastatin 80 mg tablet 80 mg PO DAILY 06/30/19 07/23/22 aspirin 81 mg tablet 81 mg PO DAILY 01/04/20 07/23/22 trimethoprim 100 mg tablet 100 mg PO DAILY 07/23/22 07/23/22 Allergies Allergy/AdvReac Type Severity Reaction Status Date / Time bee venom protein (honey bee) Allergy Severe Anaphylaxis Verified 07/23/22 07:45 Review of Systems Review of Systems: A 10 system review of systems was completed on the patient and is negative except for what is stated in the HPI. Nursing and ancillary documentation was reviewed. [facility] Past Medical History Medical History Greater trochanteric bursitis of left hip Hyperlipidemia Hypertension Osteoarthritis PUD (peptic ulcer disease) Surgical History Surgical History History of spinal surgery Social History Social History Smoking status: Never smoker Alcohol intake: current Drinks per week: 4 Substance use: never Substance use type: does not use Living arrangements: with family Occupation/Education: retired Spiritual care concerns: No Exam Narrative: GENERAL: Well-appearing, well-nourished, and in no acute distress. HEAD: Normocephalic, atraumatic. EYES: PERRLA and EOMI. ENT: Nares clear, no rhinorrhea or epistaxis. Mucous membranes moist. NECK: Supple. CHEST: Coarse rhonchi to auscultation. No respiratory distress. HEART: Regular rate and rhythm. No murmur heard. Normal peripheral pulses. ABDOMEN: Soft, nontender, nondistended, normal active bowel sounds. EXTREMITIES: Normal range of motion. No edema. SKIN: Warm, dry, no rash. NEURO: No focal deficits. Alert and oriented x3. PSYCH: Normal mood and affect. Course Vital Signs Vital signs: Vital Signs Temperature 38.1 C H 12/19/22 15:57 Pulse Rate 80 12/19/22 15:57 Respiratory Rate 18 12/19/22 15:57 Blood Pressure 152/59 H 12/19/22 15:57 Pulse Oximetry 100 12/19/22 15:57 Oxygen Delivery Room Air 12/19/22 15:57 Temperature 38.1 C H 12/19/22 15:57 Pulse Rate 103 H 12/19/22 20:11 Respiratory Rate 24 H 12/19/22 20:11 Blood Pressure 152/59 H 12/19/22 15:57 Pulse Oximetry 91 12/19/22 20:11 Oxygen Delivery Nasal Cannula 12/19/22 20:11 Oxygen Flow Rate 2 12/19/22 20:11 Fraction of Inspired Oxygen 28 12/19/22 20:11 Medical Decision Making [facility] Narrative Medical decision making narrative: Differential diagnose includes COVID-19, pneumonia, bronchitis, COPD exacerbation Patient was febrile tachycardic and was hypoxic on room air requiring between 2 and 5 L to maintain his saturation above 90 Chest x-ray showed no focal infiltrate Laboratory studies showed a normal CBC ABG showed a PO2 of 47.7 and a pH of 7.493 electrolytes showed a BUN of 23 and a creatinine of 1.6 with a GFR of 30. BNP was 459 Vital Signs Vital Signs: Vital Signs Temperature 38.1 C H 12/19/22 15:57 Pulse Rate 80 12/19/22 15:57 Respiratory Rate 18 12/19/22 15:57 Blood Pressure 152/59 H 12/19/22 1
[2022-12-19] MEDS: SODIUM CHLORIDE 0.9% IV 1,000 ML 999 ML IV CONT (20:22)
[2022-12-19] MEDS: ACETAMINOPHEN 500 MG TABLET 1000 MG PO (20:22)
[2022-12-19 20:23] LABS: Influenza A QL RT-PCR Negative (Negative); Influenza B QL RT-PCR Negative (Negative); SARS-CoV-2 RNA PCR Positive (Negative)
[2022-12-19 20:35] LABS: Troponin I 0.013 ng/mL (0.000-0.034)
--- NOTE | 2022-12-19 20:58 | PM.IMHP ---
H&P: HPI History of Present Illness Date/Time: 12/19/22 20:58 Chief Complaint: sob Narrative: This is an 81-year-old male with past medical history significant for hypertension, dyslipidemia, peptic ulcer disease, patient presents to the emergency room due to 1 week of shortness of breath, cough ,generalized malaise, body aches and pains, fevers, chills, poor appetite ,productive cough, poor per orally intake. Patient was found to be positive for COVID A he had low pulse ox as well requiring supplemental oxygen. At the time of my visit patient was unable to give much history due to obtundation, lethargy, persistent productive cough. Preliminary workup was significant for COVID-19 positive. Patient is been admitted for further evaluation management and treatment. EXAMINATION: XR chest 1V portable 12/19/2022 19:27 INDICATION: Dyspnea. Cough. PROCEDURE:? 2 view chest COMPARISON: 12/06/2019 FINDINGS: The lungs are clear.? The cardiomediastinal silhouette is within normal limits.? There are no pleural effusions.? There is no pneumothorax suspected.? IMPRESSION: 1:? NO ACUTE CARDIOPULMONARY DISEASE. Review of Systems Review of Systems: Shortness of breath, cough productive, generalized body aches and pains, poor per orally intake, poor appetite, fevers, chills Constitutional: Constitutional: Reports chills, Reports fatigue, Reports fever(s), Reports malaise, Reports poor appetite and Reports weakness Eyes: Eyes: Denies change in vision ENT: Denies dysphagia and Denies odynophagia Cardiovascular: Cardiovascular: Denies chest pain, Denies radiating jaw, neck or arm pain and Denies palpitations Respiratory: Respiratory: Reports chest congestion, Reports cough, Reports excessive phlegm production, Reports dyspnea and Reports dyspnea on exertion Gastrointestinal: Gastrointestinal: Denies abdominal pain, Denies dyspepsia, Denies diarrhea, Denies nausea and Denies vomiting Genitourinary: Genitourinary: Denies dysuria Musculoskeletal: Musculoskeletal: Reports myalgias Integumentary/Breasts: Skin/Breast: Denies rash Neurologic: Denies focal weakness and Denies Sensory deficit (Neuro) Psychiatric: Psychiatric: Reports no additional psychiatric complaints and Reports as per HPI Endocrine: Endocrine: Denies cold intolerance, Denies fatigue, Denies flushing, Denies heat intolerance, Denies polyphagia, Denies polydipsia and Denies palpitations Hematologic/Lymphatic: Hematologic/Lymphatic: Reports no additional hematologic/lymphatic complaints and Reports as per HPI Allergic/Immunologic: Allergic/Immunologic: Reports no additional allergic/immunologic complaints and Reports as per HPI PMFSH Past Medical History Medical History Greater trochanteric bursitis of left hip Hyperlipidemia Hypertension Osteoarthritis PUD (peptic ulcer disease) Surgical History Surgical History History of spinal surgery Social History Social History Smoking status: Never smoker Alcohol intake: never Drinks per week: 4 Substance use: never Substance use type: does not use Lack of Transportation: No Lack of Food: Never True Current Housing: I Have Housing Concerned About Future Housing: No Difficulty Paying Gas/Electric Bills: No Difficulty Paying for Meds: No Currently Unemployed: No Education: Bachelor's Degree Difficulty w/ Childcare or Family Care: No Living arrangements: with family Occupation/Education: retired Spiritual care concerns: No Meds Home Medications and Allergies Home Medications Medication Instructions Recorded Confirmed Type amlodipine 5 mg tablet 5 mg PO DAILY 06/30/19 12/19/22 History atorvastatin 80 mg tablet 80 mg PO DAILY 06/30/19 12/19/22 History aspirin 81 mg tablet 81 mg PO
[2022-12-19 21:39] LABS: Procalcitonin 0.1 ng/mL
--- NOTE | 2022-12-19 22:48 | PC.NURSE ---
[id number] Mary notified.
--- NOTE | 2022-12-19 23:23 | ADMGEN ---
This patient, Luis Miguel Anguiano, was admitted to Medical Room 258-01. Patient/family oriented to hospital policies and general routines including ID bracelet, bed and alarms, visiting hours, pain management, procedures, bathroom and other care routines, personal items, smoking policy, room service/diet, and visiting hours. Information on how to activate the Rapid Response Team has been discussed. Patient/Family are encouraged to report perceived risks to care and to ask questions if they do not understand what they are told or what they should do.
[2022-12-20] VITALS (33 sets, daily range): BP systolic 107–132; BP diastolic 55–60; PULSE 72–117; RESP 16–21; TEMP 36.4–38.3; O2SAT 84–100
[2022-12-20] MEDS: ALBUTEROL SULFATE NEB 2.5 MG/3 ML INH INHALATION ×4 (01:21→20:11)
[2022-12-20] MEDS: IPRATROPIUM BR 0.02% INH SOLN 0.5 MG/2.5 ML VIAL INHALATION ×4 (01:21→20:11)
--- NOTE | 2022-12-20 06:29 | PC.NURSE ---
Dr. Leigh aware patient requiring venti mask 50%/15L to maintain >90%
[2022-12-20 06:31] LABS: Appearance Urine Clear (Clear); Bacteria Urine None Seen /hpf; Bilirubin Urine Negative (Negative); Blood Urine 1+ (Negative); Color Urine Yellow (Yellow); Glucose Urine UA Negative (Negative); Granular Casts Urine Present /lpf; Hyaline Casts Urine Present /lpf; Ketones Urine Trace mg/dL (Negative); Leukocyte Esterase Ur Trace LEU/UL (Negative); Nitrate Urine Negative (Negative); Protein Urine 2+ mg/dL (Negative); RBC Urine 0-2 /hpf (0-2); Squamous Epithelial Cell Urine Occasional /hpf (Few); WBC Clumps Urine Present /HPF; pH Urine 5.5 (5.0-9.0)
[2022-12-20 06:39] LABS: Add Urine Microscopic? NO
[2022-12-20] MEDS: amLODIPine BESYLATE 5 MG TABLET PO (09:01)
[2022-12-20] MEDS: ASPIRIN 81 MG ENTERIC TABLET PO (09:01)
[2022-12-20] MEDS: PANTOPRAZOLE SODIUM IV 40 MG VIAL IV PUSH (09:01)
--- NOTE | 2022-12-20 11:20 | PM.IMPN ---
Progress Note: A&P Assessment and Plan (1) Acute hypoxic respiratory failure: Code(s): J96.01 - Acute respiratory failure with hypoxia Status: Acute (2) COVID-19: Code(s): U07.1 - COVID-19 Status: Acute Plan 81M w/ PMH HTN, HLD presented with chills, body aches, shortness of breath and confusion. Admitted on 12/19 for COVID 1) COVID pneumonia - dexamethasone started 12/19 - remdesevir started 12/20 (patient aware of risks, chose to attempt remdesevir to prevent progression of severe covid illness with careful monitoring) - lovenox for DVT prophylaxis - monitor inflammatory markers and procalcitonin 2) acute hypoxic respiratory failure - 04/11 covid - on 15L oxymask. monitor closely 3) sepsis w/o shock - monitor vitals - pending blood cultlure - recheck UA and urine culture 4) QUINTON - pt unaware of any CKD - CTM 5) HTN - hold antihypertensives, restart as indicated FEN:saline lock IV, GI prophylaxis: protonix DVT prophylaxis: lovenox Lines: pIV Code Status: Full Code Dispo: guarded More than 35 minutes spent on chart review, patient interaction and assessment and plan. Subjective Date/time seen: 12/20/22 11:20 Interval history: pt reports improved mentation and breathing. he remembers being confused on arrival Review of Systems Constitutional: Constitutional: Reports as per HPI Cardiovascular: Cardiovascular: Denies chest pain Respiratory: Respiratory: Reports cough and Denies wheezing Gastrointestinal: Gastrointestinal: Denies nausea and Denies vomiting Exam Eyes: Pupils: Equal, round and reactive pupils present Resp: Effort & Inspection: normal respiratory effort Auscultation: clear to auscultation bilaterally Cardio: Rate: regular rate Rhythm: regular rhythm Heart sounds: no gallops and no murmurs GI: Inspection: non-distended GI Palp: No Tenderness to palpation present (GI) Skin: General skin exam: no erythema Objective Data Vital Signs Vital Signs: Vital Signs - 24 hr 12/19/22 15:57 12/19/22 19:42 12/19/22 20:10 Temperature 100.6 F H Pulse Rate 80 103 H Respiratory Rate 18 22 H Blood Pressure 152/59 H Pulse Oximetry 100 92 Oxygen Delivery Room Air Nasal Cannula Oxygen Flow Rate 5 Fraction of Inspired Oxygen 12/19/22 20:11 12/19/22 20:11 12/19/22 21:14 Temperature Pulse Rate 103 H 110 H Respiratory Rate 24 H 15 Blood Pressure 144/86 H Pulse Oximetry 91 94 Oxygen Delivery Nasal Cannula Oxygen Flow Rate 2 Fraction of Inspired Oxygen 28 12/19/22 23:17 12/19/22 23:29 12/19/22 23:40 Temperature 98.3 F Pulse Rate 106 H 89 Respiratory Rate 15 18 Blood Pressure 112/48 L 120/65 Pulse Oximetry 93 90 90 Oxygen Delivery High Flow Nasal Cannula Oxygen Flow Rate 6 Fraction of Inspired Oxygen 12/19/22 23:59 12/20/22 00:10 12/20/22 00:43 Temperature Pulse Rate Respiratory Rate Blood Pressure Pulse Oximetry 92 87 L 91 Oxygen Delivery Venturi Mask High Flow Nasal Cannula Venturi Mask Oxygen Flow Rate 15 8 15 Fraction of Inspired Oxygen 40 40 12/20/22 01:21 12/20/22 01:33 12/20/22 00:00 Temperature Pulse Rate 76 75 77 Respiratory Rate 20 20 Blood Pressure Pulse Oximetry Oxygen Delivery Oxygen Flow Rate Fraction of Inspired Oxygen 12/20/22 04:00 12/20/22 06:00 12/20/22 07:55 Temperature 97.9 F Pulse Rate 90 89 Respiratory Rate 18 Blood Pressure 132/59 L Pulse Oximetry 100 93 Oxygen Delivery Venturi Mask Oxygen Flow Rate 15 Fraction of Inspired Oxygen 50 12/20/22 07:55 12/20/22 08:15 12/20/22 08:30 Temperature 97.6 F Pulse Rate 100 103 H Respiratory Rate 20 20 Blood Pressure Pulse Oximetry 94 Oxygen Delivery Oxygen Flow Rate Fraction of Inspired Oxygen 12/20/22 08:59 12/20/22 08:33 12/20/22 09:15 Temperature Pulse Rate 108 H 117 H Respiratory Rate 20 Blood Pressure 131/60 Pulse Oximetry 94
[2022-12-20] MEDS: REMDESIVIR 200 MG/NS 250 ML 200 MG/250 ML BAG 250 MG IVPB (12:46)
[2022-12-20] MEDS: ENOXAPARIN 30 MG/0.3 ML SYRINGE SUB-Q (12:46)
[2022-12-20] MEDS: BENZOCAINE/MENTHOL (*BKC) 18 EA LOZENGE 1 LOZENGE PO (12:47)
[2022-12-20 13:32] LABS: Amorphous Sediment Urine Present; Appearance Urine Cloudy (Clear); Bacteria Urine None Seen /hpf; Bilirubin Urine Negative (Negative); Blood Urine 2+ (Negative); Color Urine Yellow (Yellow); Glucose Urine UA Trace mg/dL (Negative); Ketones Urine Negative (Negative); Leukocyte Esterase Ur Negative LEU/UL (NEGATIVE); Need Manual Microscopic Reviewed; Nitrate Urine Negative (Negative); Protein Urine 2+ mg/dL (Negative); Specific Grav Ur 1.022 (1.001-1.035); Squamous Epithelial Cell Urine Occasional /hpf (Few); WBC Urine 0-5 /hpf (0-3); pH Urine 5.5 (5.0-9.0)
[2022-12-20 13:36] LABS: Add Urine Microscopic? YES
--- NOTE | 2022-12-20 14:45 | PC.NURSE ---
patient desatted to mid 80s after breathing treatment, patient was found sitting on side of bed and had taken mask off. Patient took several minutes to recover O2 sats, patient was placed on 15 L non-rebreather be respiratory therapist. notified
[2022-12-20] MEDS: ACETAMINOPHEN 325 MG TABLET 650 MG PO (18:02)
[2022-12-20 18:30] LABS: Alveolar/Arterial O2 Gradient 345.2 mmHg; Fractional Inspired Oxygen 60 %; HCO3 ABG 21.7 mEq/l (22.0-26.0); Oxygen Content ABG 15.4 %vol (16.0-22.0); Oxygen Saturation ABG 91.2 % (95.0-100.0); Oxyhemoglobin 88.4 % THb (90.0-100.0); PCO2 ABG 27.1 mmHg (35.0-45.0); PO2 ABG 52.8 mmHg (80.0-100.0); PO2 FiO2 Ratio Arterial Blood 0.88 %; Total Hemoglobin 12.4 g/dL (12.0-18.0)
[2022-12-20 18:34] LABS: Device HIGH FLOW NASAL CANN; Modified Allen's Test Pass; Site Drawn RIGHT RADIAL; pH ABG 7.521 (7.350-7.450)
--- NOTE | 2022-12-20 18:40 | PC.NURSE ---
Report given to Lalo in ICU
--- NOTE | 2022-12-20 19:34 | PC.NURSE ---
Spoke with daughter, Eneida, to update her that patient moved to ICU-6.
[2022-12-21] VITALS (27 sets, daily range): BP systolic 98–128; BP diastolic 50–68; PULSE 72–90; RESP 16–70; TEMP 36–36.9; O2SAT 92–99
[2022-12-21] MEDS: IPRATROPIUM BR 0.02% INH SOLN 0.5 MG/2.5 ML VIAL INHALATION ×4 (02:39→21:45)
[2022-12-21] MEDS: ALBUTEROL SULFATE NEB 2.5 MG/3 ML INH INHALATION ×4 (02:39→21:45)
[2022-12-21 04:32] LABS: Hematocrit 34.1 % (42.0-52.0); Hemoglobin 11.4 g/dL (14.0-18.0); Mean Corpuscular HGB Conc 33.4 g/dl (32-36); Mean Corpuscular Hemoglobin 32.5 pg (26-34); Mean Corpuscular Volume 97.2 fl (80-100); Mean Platelet Volume 10.5 fl (7.4-10.4); Platelet Count Result 127 k/mm3 (150-375); Red Blood Count 3.51 M/mm3 (4.6-6.20); White Blood Count 7.6 K/mm3 (4.5-10.0)
[2022-12-21 04:45] LABS: Alanine Aminotransferase 24 U/L (6-50); Albumin Level 3.3 g/dL (3.5-5.1); Alkaline Phosphatase 49 U/L (38-126); Anion Gap 4 mmol/L (8-16); Aspartate Amino Transferase 51 U/L (17-59); Bilirubin,Total 0.9 mg/dL (0.2-1.3); Blood Urea Nitrogen 23 mg/dL (9-20); Calcium 8.3 mg/dL (8.4-10.2); Carbon Dioxide 26 mmol/L (22-30); Chloride 101 mmol/L (98-107); Estimated CRCL calculation 39 ml/min; Estimated Glomerular Filt Rate 58; Glucose 156 mg/dL (65-110); Potassium 4.4 mmol/L (3.4-5.0); Sodium 131 mmol/L (137-145)
[2022-12-21 05:16] LABS: D Dimer 2.62 ug/mL (<0.48)
[2022-12-21 05:53] LABS: Procalcitonin 9.6 ng/mL
--- NOTE | 2022-12-21 08:29 | PM.IMPN ---
Progress Note: A&P Assessment and Plan (1) COVID-19: Code(s): U07.1 - COVID-19 Status: Acute (2) Acute hypoxic respiratory failure: Code(s): J96.01 - Acute respiratory failure with hypoxia Status: Acute (3) Pneumonia: Code(s): J18.9 - Pneumonia, unspecified organism Status: Acute Plan 81M w/ PMH HTN, HLD presented with chills, body aches, shortness of breath and confusion. Admitted on 12/19 for COVID-19 1) COVID pneumonia - dexamethasone started 12/19 - remdesevir started 12/20 (patient aware of risks, chose to attempt remdesevir to prevent progression of severe covid illness with careful monitoring) - toculizumab given 12/21 - lovenox for DVT prophylaxis. however now D Dimer elevated, so we will obtain CTPE. cont to monitor d dimer daily - monitor inflammatory? markers and procalcitonin daily 2) Community acquired pneumonia - R rhonchi, b/l infiltrates on cxr. pending CT - levofloxacin started on 12/21 3) acute hypoxic respiratory failure - 2/2 covid - on 15L oxymask to NRB on 12/20 back to ARVO on 65 fio2 on 12/21 4) sepsis w/o shock - monitor vitals - pending blood culture - UA not convincing of UTI. pending urine culture 6) QUINTON - resolved. ctm. 7) HTN - hold antihypertensives, restart as indicated FEN:saline lock IV, regular diet GI prophylaxis: not indicated DVT prophylaxis: lovenox Lines: pIV Code Status: Full Code Dispo: guarded More than 35 minutes spent on chart review, patient interaction and assessment and plan. Subjective Date/time seen: 12/21/22 08:29 Interval history: yesterday evening patient appeared short of breath, transferred from [facility] to IMU as his requirement increased to NRB. he is back on ARVO at 65% fio2. he rests comfortable in bed and reports his main concern was that they moved him yesterday and that scared him, otherwise he was doing ok for the most part and this morning is feeling great Review of Systems Cardiovascular: Cardiovascular: Denies chest pain and Denies dyspnea Respiratory: Respiratory: Denies cough and Denies dyspnea Gastrointestinal: Gastrointestinal: Denies abdominal pain and Denies vomiting Exam Const: General: no acute distress, alert and Physically active Resp: Effort & Inspection: normal respiratory effort Auscultation: rhonchi (right lower and mid lung in abundance) Cardio: Rate: regular rate Rhythm: regular rhythm Heart sounds: S1 normal heart sound present and S2 normal heart sound present GI: Inspection: non-distended GI Palp: No abdominal tenderness Auscultation: normal bowel sounds Extrem: Right upper extremity: no edema Psych: Mental Status: mental status grossly normal Objective Data Vital Signs Vital Signs: Vital Signs - 24 hr 12/20/22 08:30 12/20/22 08:59 12/20/22 08:33 Temperature 97.6 F Pulse Rate 108 H 117 H Respiratory Rate 20 Blood Pressure 131/60 Pulse Oximetry 94 94 Oxygen Delivery Oxygen Flow Rate Fraction of Inspired Oxygen 12/20/22 09:15 12/20/22 12:00 12/20/22 13:40 Temperature Pulse Rate 101 H 104 H Respiratory Rate 20 Blood Pressure Pulse Oximetry 94 Oxygen Delivery Venturi Mask Oxygen Flow Rate 15 Fraction of Inspired Oxygen 50 12/20/22 14:00 12/20/22 14:00 12/20/22 14:03 Temperature Pulse Rate 108 H Respiratory Rate 20 Blood Pressure Pulse Oximetry 84 L Oxygen Delivery Room Air Venturi Mask Oxygen Flow Rate 15 Fraction of Inspired Oxygen 50 12/20/22 14:06 12/20/22 14:34 12/20/22 14:50 Temperature Pulse Rate Respiratory Rate Blood Pressure Pulse Oximetry 92 93 93 Oxygen Delivery Non-Rebreather Mask Non-Rebreather Mask Non-Rebreather Mask Oxygen Flow Rate 15 15 15 Fraction of Inspired Oxygen 100 12/20/22 16:18 12/20/22 17:00 12/20/22 18:02 Temperature 100.9 F H 100.9 F H Pulse Rate 101 H 99 Respiratory Rate 20 16 Blood Pressure 127/58 L Pulse Oximetry 94 90
[2022-12-21] MEDS: levoFLOXacin 750 MG/D5W 150 ML 750 MG/150 ML BAG 100 MG IVPB (09:37)
[2022-12-21] MEDS: ASPIRIN 81 MG ENTERIC TABLET PO (09:37)
[2022-12-21] MEDS: ENOXAPARIN 30 MG/0.3 ML SYRINGE SUB-Q (09:37)
[2022-12-21] MEDS: amLODIPine BESYLATE 5 MG TABLET PO (09:37)
[2022-12-21] MEDS: REMDESIVIR 100 MG/NS 250 ML 100 MG/250 ML BAG 250 MG IVPB (10:12)
--- NOTE | 2022-12-21 12:35 | PC.NURSE ---
Addendum entered by Sameera Palacio RN 12/21/22 13:04: This patient, Luis Miguel Anguiano, was transferred to [facility] on 12/21/22 at 1235. Personal belongings sent with patient. Report given to Marilynn. Appropriate documentation sent with patient. Original Note: This patient, Luis Miguel Anguiano, was transferred to [ ] on 12/21/22 at 1256. Personal belongings sent with patient. Report given to [ ]. Appropriate documentation sent with patient.
[2022-12-22] VITALS (20 sets, daily range): BP systolic 112–119; BP diastolic 56–65; PULSE 69–85; RESP 14–22; TEMP 36.2–36.6; O2SAT 92–100
[2022-12-22] MEDS: ALBUTEROL SULFATE NEB 2.5 MG/3 ML INH INHALATION ×4 (02:15→20:00)
[2022-12-22] MEDS: IPRATROPIUM BR 0.02% INH SOLN 0.5 MG/2.5 ML VIAL INHALATION ×4 (02:15→20:00)
[2022-12-22 04:55] LABS: Hematocrit 35.7 % (42.0-52.0); Hemoglobin 12.2 g/dL (14.0-18.0); Mean Corpuscular HGB Conc 34.2 g/dl (32-36); Mean Corpuscular Hemoglobin 32.4 pg (26-34); Mean Corpuscular Volume 94.7 fl (80-100); Mean Platelet Volume 11.1 fl (7.4-10.4); Platelet Count Result 149 k/mm3 (150-375); Red Blood Count 3.77 M/mm3 (4.6-6.20)
[2022-12-22 05:07] LABS: Alanine Aminotransferase 29 U/L (6-50); Albumin Level 3.5 g/dL (3.5-5.1); Alkaline Phosphatase 67 U/L (38-126); Anion Gap 6 mmol/L (8-16); Aspartate Amino Transferase 53 U/L (17-59); Bilirubin,Total 0.8 mg/dL (0.2-1.3); Blood Urea Nitrogen 32 mg/dL (9-20); Calcium 8.7 mg/dL (8.4-10.2); Carbon Dioxide 24 mmol/L (22-30); Chloride 102 mmol/L (98-107); Estimated CRCL calculation 39 ml/min; Estimated Glomerular Filt Rate 58; Glucose 157 mg/dL (65-110); Magnesium 2.3 mg/dL (1.6-2.3); Phosphorus 3.2 mg/dL (2.5-4.5); Potassium 3.9 mmol/L (3.4-5.0); Sodium 132 mmol/L (137-145)
[2022-12-22 05:19] LABS: Procalcitonin 7.6 ng/mL
[2022-12-22 05:31] LABS: D Dimer 2.21 ug/mL (<0.48)
[2022-12-22] MEDS: ASPIRIN 81 MG ENTERIC TABLET PO (09:08)
[2022-12-22] MEDS: REMDESIVIR 100 MG/NS 250 ML 100 MG/250 ML BAG 250 MG IVPB (09:08)
[2022-12-22] MEDS: ENOXAPARIN 40 MG/0.4 ML SYRINGE SUB-Q (09:08)
[2022-12-22] MEDS: amLODIPine BESYLATE 5 MG TABLET PO (09:08)
--- NOTE | 2022-12-22 15:09 | PM.IMPN ---
Progress Note: A&P Assessment and Plan (1) COVID-19: Code(s): U07.1 - COVID-19 Status: Acute (2) Acute hypoxic respiratory failure: Code(s): J96.01 - Acute respiratory failure with hypoxia Status: Acute (3) Pneumonia: Code(s): J18.9 - Pneumonia, unspecified organism Status: Acute Plan 81M w/ PMH HTN, HLD presented with chills, body aches, shortness of breath and confusion. Admitted on 12/19 for COVID-19 1) COVID pneumonia - dexamethasone started 12/19 - remdesevir started 12/20 (patient aware of risks, chose to attempt remdesevir to prevent progression of severe covid illness with careful monitoring) - toculizumab given 12/21 due to worsening status, was on ARVO 65% o2 supplementation at one point - now off oxygen completely. d/c tomorrow if status does not change - lovenox for DVT prophylaxis. d dimer elevated but CTPE negative. cont to trend dimer and ferritin 2) Community acquired pneumonia - R rhonchi, b/l infiltrates on cxr. CT chest supports dx of pneumonia. - levofloxacin started on 12/21 3) acute hypoxic respiratory failure - 2/2 covid - resolved. as in #1 4) sepsis w/o shock - monitor vitals - pending blood cultures 5) QUINTON - resolved. ctm. 6) HTN - hold antihypertensives, restart as indicated FEN:saline lock IV, regular diet DVT prophylaxis: lovenox Lines: pIV Code Status: Full Code Dispo: stable. home tomorrow if continues to improve Subjective Date/time seen: 12/22/22 15:09 Interval history: NAOE. pt feels great. no sob, he walked to bathroom, he is ambulating independently. no chest pain Review of Systems Review of Systems: All systems reviewed & are unremarkable except as noted in HPI and below Exam Const: General: comfortable and no acute distress Eyes: Pupils: Equal, round and reactive pupils present Resp: Effort & Inspection: normal respiratory effort Auscultation: clear to auscultation bilaterally Cardio: Rate: regular rate Rhythm: regular rhythm GI: Inspection: non-distended GI Palp: Yes Soft to palpation Auscultation: normal bowel sounds Extrem: General: edema Objective Data Vital Signs Vital Signs: Vital Signs - 24 hr 12/21/22 15:35 12/21/22 16:00 12/21/22 16:00 Temperature 97.4 F L Pulse Rate 82 88 Respiratory Rate 18 Blood Pressure 128/60 Pulse Oximetry 96 96 Oxygen Delivery High Flow Nasal Cannula Oxygen Flow Rate 4 12/21/22 18:00 12/21/22 20:30 12/21/22 20:00 Temperature 97.3 F L Pulse Rate 78 78 80 Respiratory Rate 18 Blood Pressure 113/63 Pulse Oximetry 99 Oxygen Delivery Oxygen Flow Rate 12/21/22 20:00 12/21/22 21:45 12/21/22 22:03 Temperature Pulse Rate 76 76 Respiratory Rate 20 Blood Pressure Pulse Oximetry 99 96 Oxygen Delivery High Flow Nasal Cannula High Flow Nasal Cannula Oxygen Flow Rate 4 4 12/21/22 21:55 12/21/22 22:00 12/21/22 23:25 Temperature 97.3 F L Pulse Rate 78 85 77 Respiratory Rate 20 18 Blood Pressure 110/66 Pulse Oximetry 92 Oxygen Delivery Oxygen Flow Rate 12/22/22 00:00 12/22/22 00:00 12/22/22 02:00 Temperature Pulse Rate 76 80 Respiratory Rate Blood Pressure Pulse Oximetry 92 Oxygen Delivery High Flow Nasal Cannula Oxygen Flow Rate 4 12/22/22 02:15 12/22/22 02:30 12/22/22 02:00 Temperature Pulse Rate 71 74 Respiratory Rate 20 20 Blood Pressure Pulse Oximetry 96 Oxygen Delivery High Flow Nasal Cannula Oxygen Flow Rate 4 12/22/22 02:30 12/22/22 04:00 12/22/22 04:00 Temperature Pulse Rate 78 Respiratory Rate Blood Pressure Pulse Oximetry 94 97 Oxygen Delivery High Flow Nasal Cannula High Flow Nasal Cannula Oxygen Flow Rate 3 3 12/22/22 04:30 12/22/22 06:00 12/22/22 08:43 Temperature 97.3 F L Pulse Rate 75 69 Respiratory Rate 18 Blood Pressure 112/62 Pulse Oximetry 98 96 Oxygen Delivery High Flow Nasal Cannula Oxygen
[2022-12-23] VITALS (11 sets, daily range): BP systolic 104–126; BP diastolic 51–61; PULSE 64–81; RESP 18–20; TEMP 36.4–36.8; O2SAT 91–100
[2022-12-23] MEDS: IPRATROPIUM BR 0.02% INH SOLN 0.5 MG/2.5 ML VIAL INHALATION ×2 (02:00→08:57)
[2022-12-23] MEDS: ALBUTEROL SULFATE NEB 2.5 MG/3 ML INH INHALATION ×2 (02:00→08:57)
[2022-12-23 04:48] LABS: INR 1.1
[2022-12-23 04:52] LABS: Alanine Aminotransferase 30 U/L (6-50); Alkaline Phosphatase 66 U/L (38-126); Anion Gap 6 mmol/L (8-16); Aspartate Amino Transferase 47 U/L (17-59); Bilirubin,Total 0.7 mg/dL (0.2-1.3); Blood Urea Nitrogen 35 mg/dL (9-20); Calcium 8.3 mg/dL (8.4-10.2); Carbon Dioxide 25 mmol/L (22-30); Chloride 104 mmol/L (98-107); Estimated CRCL calculation 39 ml/min; Estimated Glomerular Filt Rate 58; Glucose 167 mg/dL (65-110); Magnesium 2.3 mg/dL (1.6-2.3); Potassium 3.9 mmol/L (3.4-5.0); Sodium 135 mmol/L (137-145)
[2022-12-23 05:04] LABS: Procalcitonin 4.3 ng/mL
[2022-12-23 05:39] LABS: D Dimer 1.14 ug/mL (<0.48)
[2022-12-23] MEDS: ENOXAPARIN 40 MG/0.4 ML SYRINGE SUB-Q (10:25)
[2022-12-23] MEDS: amLODIPine BESYLATE 5 MG TABLET PO (10:26)
[2022-12-23] MEDS: ASPIRIN 81 MG ENTERIC TABLET PO (10:26)
[2022-12-23] MEDS: levoFLOXacin 750 MG/D5W 150 ML 750 MG/150 ML BAG 100 MG IVPB (10:27)
--- NOTE | 2022-12-23 12:11 | PM.DS ---
DS: Admitting Diagnosis Discharge Date 12/23/22 Admitting Diagnosis COVID pneumonia DS: Discharge Diagnosis Discharge Diagnosis Plan 81M w/ PMH HTN, HLD presented with chills, body aches, shortness of breath and confusion. Admitted on 12/19 for COVID-19 1) COVID pneumonia - dexamethasone started 12/19 - remdesevir started 12/20 (patient aware of risks, chose to attempt remdesevir to prevent progression of severe covid illness with careful monitoring) - toculizumab given 12/21 due to worsening status, was on ARVO 65% o2 supplementation at one point - now off oxygen completely. d/c tomorrow if status does not change - lovenox for DVT prophylaxis. d dimer elevated but CTPE negative. cont to trend dimer and ferritin - stop dexamethasone, remdesevir, toculizumab 2) Community acquired pneumonia - R rhonchi, b/l infiltrates on cxr. CT chest supports dx of pneumonia. - levofloxacin started on 12/21 - levaquin for 5 days at 500 mg/day. Discussed with pharmacy to do a lower dosing. 3) acute hypoxic respiratory failure - 2/2 covid - resolved. as in #1 4) sepsis w/o shock - monitor vitals - pending blood cultures - resolved 5) QUINTON - resolved. 6) HTN - restart on dc FEN:saline lock IV, regular diet DVT prophylaxis: lovenox Lines: pIV Code Status: Full Code Dispo: home today DS: Summary Hospital Course Reason for hospitalization: acute hypoxic resp. failure 2 to covid Hospital Course: This is an 81-year-old male with past medical history significant for hypertension, dyslipidemia, peptic ulcer disease, patient presents to the emergency room due to 1 week of shortness of breath, cough ,generalized malaise, body aches and pains, fevers, chills, poor appetite ,productive cough, poor per orally intake.? Patient was found to be positive for COVID A he had low pulse ox as well requiring supplemental oxygen.? At the time of my visit patient was unable to give much history due to obtundation, lethargy, persistent productive cough.? Preliminary workup was significant for COVID-19 positive.? Patient is been admitted for further evaluation management and treatment. see a/p plan section Time Spent with Patient Time attestation: Total time spent providing and/or coordinating discharge services: 45 min Exam Narrative: Const:?? General: comfortab le and no acute di stress Eyes:?? Pupils: Equal, rou nd and reactive pu pils present Resp:?? Effort & Inspectio n: normal respirat ory effort? Auscul tation: clear to a uscultation bilate rally Cardio:?? Rate: regular rate ? Rhythm: regular rhythm GI:?? Inspection: non-di stended? GI Palp: Yes Soft to palpat ion? Auscultation: normal bowel soun ds Extrem:?? General: edema DS: Data Data Completed and Pending Labs on day of discharge: Labs from last 24 hours 12/23/22 12/23/22 03:48 03:47 PT 15.0 H INR 1.1 D-Dimer 1.14 H Sodium 135 L Potassium 3.9 Chloride 104 Carbon Dioxide 25 Anion Gap 6 L BUN 35 H Creatinine 1.20 Estim Creat Clear Calc 39 Estimated GFR 58 L Glucose 167 H Calcium 8.3 L Magnesium 2.3 Ferritin 422.00 H Total Bilirubin 0.7 AST 47 ALT 30 Alkaline Phosphatase 66 Total Protein 6.0 L Albumin 3.0 L Procalcitonin 4.3 Preliminary micro results at discharge 12/19/22 19:37 Blood Culture - Preliminary Blood 12/19/22 19:37 Blood Culture - Preliminary Blood Discharge Plan Discharge Attending physician on discharge: Son Gupta Discharging Clinician: Son Gupta Patient Disposition: Home, Self-Care
== END 2022-12-23 13:03 | disposition home or self-care (01) | DRG 871 ==
LOC: ANHED 20:47 → ANH2MED 22:25 → ANHIMU 12-23 12:05 → ANH2MED 12-24 14:18 → ANHICU 12-24 14:18 → ANHIMU 12-24 14:18
PROVIDERS: Emergency Medicine; General Practice; Admitting Provider Internal Medicine; Emergency Provider Emergency Medicine; PCP Internal Medicine; Visit Provider Internal Medicine
DX: A41.89 Other specified sepsis (principal); J12.82 Pneumonia due to coronavirus disease 2019; U07.1 COVID-19; J96.01 Acute respiratory failure with hypoxia; J18.9 Pneumonia, unspecified organism; J44.1 Chronic obstructive pulmonary disease with (acute) exacerbation; J44.0 Chronic obstructive pulmonary disease with (acute) lower respiratory infection; N17.9 Acute kidney failure, unspecified; I10 Essential (primary) hypertension
CPT/HCPCS: 36415; 36600; 71045; 71275; 80053; 81001; 81003; 82728; 82805; 83605; 83735; 83880; 84100; 84145; 84484; 85025; 85027; 85380; 85610; 85730; 87040; 87086; 87147; 87181; 87186; 87636; 87651; 93005; 94640; 96361; 96374; 99285; A9270; C9113; G0378; J0248; J1100; J1650; J1956; J7030; Q0249; Q9967

== ENCOUNTER 2023-02-06 16:02 | Emergency (ER) | payer MEDICARE, SELFPAY ==
--- NOTE | 2023-02-06 16:06 | ED.URI ---
HPI - URI/Sore Throat General Chief Complaint: Upper Respiratory Infection Stated Complaint: Chills Time Seen by Provider: 02/06/23 16:06 Source: patient Mode of arrival: ambulatory Limitations: no limitations History of Present Illness HPI Narrative: Patient is an 82-year-old male who presents with fever and chills since yesterday evening. Patient states he woke up in the ozuna bed was soaking wet from site. Patient also reports some congestion and postnasal drainage. Patient concerned for flu. Patient states he was hospitalized for COVID last month. Denies any shortness of breath, ear pain, nausea, vomiting, diarrhea. Related Data Home Medications Medication Instructions Recorded Confirmed amlodipine 5 mg tablet 5 mg PO DAILY 06/30/19 12/19/22 atorvastatin 80 mg tablet 80 mg PO DAILY 06/30/19 12/19/22 aspirin 81 mg tablet 81 mg PO DAILY 01/04/20 12/19/22 Allergies Allergy/AdvReac Type Severity Reaction Status Date / Time bee venom protein (honey bee) Allergy Severe Anaphylaxis Verified 02/06/23 16:13 Review of Systems Review of Systems: All systems reviewed & are unremarkable except as noted in HPI and below Constitutional: Constitutional: Denies body ache(s), Reports chills, Denies fatigue, Reports fever(s), Denies headache(s), Denies malaise and Denies weakness Eyes: Eyes: Denies blurry vision, Denies itchy eyes and Denies loss of vision ENT: Denies otalgia, Denies headache(s), Reports nasal congestion, Denies sinus pain and Reports sore throat Cardiovascular: Cardiovascular: Denies chest pain, Denies irregular heart rhythm and Denies dyspnea Respiratory: Respiratory: Denies cough and Denies dyspnea Gastrointestinal: Gastrointestinal: Denies abdominal pain, Denies diarrhea, Denies nausea and Denies vomiting Musculoskeletal: Musculoskeletal: Denies back pain, Denies myalgias and Denies arthralgias Integumentary/Breasts: Skin/Breast: Denies pruritus and Denies rash Neurologic: Denies headache(s), Denies loss of vision and Denies weakness Psychiatric: Psychiatric: Reports no additional psychiatric complaints Endocrine: Endocrine: Denies fatigue Allergic/Immunologic: Allergic/Immunologic: Denies itchy eyes PMFSH Past Medical History Medical History Greater trochanteric bursitis of left hip Hyperlipidemia Hypertension Osteoarthritis PUD (peptic ulcer disease) Surgical History Surgical History History of spinal surgery Social History Social History Smoking status: Never smoker Alcohol intake: never Drinks per week: 4 Substance use: never Substance use type: does not use Lack of Transportation: No Lack of Food: Never True Current Housing: I Have Housing Concerned About Future Housing: No Difficulty Paying Gas/Electric Bills: No Difficulty Paying for Meds: No Currently Unemployed: No Education: Bachelor's Degree Difficulty w/ Childcare or Family Care: No Living arrangements: with family Occupation/Education: retired Spiritual care concerns: No Comments At time of signature, agree with nursing past medical, surgical, social and family history. There is no relevant family history pertinent to the presenting complaint. Exam Const: General: cooperative, healthy appearing, comfortable, no acute distress and well nourished Nutritional Appearance: well nourished Orientation/consciousness: patient oriented x3 Limitations: no limitations HENMT: Head: normal to inspection, normocephalic and atraumatic Ears: hearing grossly normal bilaterally, external ears normal, TM's normal bilaterally, EAC's normal and no periauricular adenopathy Face/Nose/Sinus: Normal external nose present, Abnormal mucous membranes and turbinates present erythematous bilateral and diffuse, normal facial exam, sinuses nontender and
[2023-02-06 16:13] VITALS: BP 150/65; PULSE 76; RESP 16; TEMP 37.4; O2SAT 97
== END 2023-02-06 16:47 | disposition home or self-care (01) ==
PROVIDERS: Emergency Provider Nurse Practitioner Family; PCP Internal Medicine
DX: J06.9 Acute upper respiratory infection, unspecified (principal); E78.5 Hyperlipidemia, unspecified; I10 Essential (primary) hypertension; M19.90 Unspecified osteoarthritis, unspecified site; Z79.82 Long term (current) use of aspirin
CPT/HCPCS: 87420; 87804; 99213; G0463

== ENCOUNTER 2023-08-29 10:05 | Emergency (ER) | payer MEDICARE, SELFPAY ==
--- NOTE | ~2023-08-29 | XR_ITS ---
EXAMINATION: XR hip LT 2V w AP pelvis DATE: 08/29/2023 10:27 INDICATION: Fall. TECHNIQUE: An anteroposterior view of the pelvis and 2 views of left hip were obtained. COMPARISON: Pelvis and left hip radiographs 07/23/2022 FINDINGS: Bone alignment is normal. There is a fracture of greater trochanter of proximal left femur. The avulsed fracture fragment demonstrates 1.9 cm posterior displacement and 3 mm medial displacemen t. There is mild osteoarthritis of the hips. There is severe lower lumbar spondylosis. IMPRESSION: 1. Fracture of greater trochanter of proximal left femur. 2. Mild osteoarthritis of the hips. Reviewed, dictated and finalized at location A.
--- NOTE | 2023-08-29 10:11 | ED.FALL ---
HPI - Fall General Chief Complaint: Fall Stated Complaint: Fall Injury, Hip Pain Time Seen by Provider: 08/29/23 10:43 Source: patient and RN notes reviewed Mode of arrival: ambulatory Limitations: no limitations History of Present Illness HPI Narrative: 82-year-old male presents concern for left hip pain. Reports this morning while walking his dog he tripped and fell onto his left hip. Reports his left foot turns out when he walks, reports lateral hip pain. MD complaint: fall Related Data Home Medications Medication Instructions Recorded Confirmed amlodipine 5 mg tablet 5 mg PO DAILY 06/30/19 08/29/23 atorvastatin 80 mg tablet 80 mg PO DAILY 06/30/19 08/29/23 aspirin 81 mg tablet 81 mg PO DAILY 01/04/20 08/29/23 Allergies Allergy/AdvReac Type Severity Reaction Status Date / Time bee venom protein (honey bee) Allergy Severe Anaphylaxis Verified 08/29/23 10:07 Review of Systems Review of Systems: CONSTITUTIONAL: Denies malaise, chills, sweats, or fever. SKIN: Denies rash or itching, open skin, laceration, abrasion, redness, warmth, swelling. MUSCULOSKELETAL: Reports left hip pain NEUROLOGIC: Denies numbness, weakness All systems reviewed & are unremarkable except as noted in HPI and below PMFSH Past Medical History Medical History Greater trochanteric bursitis of left hip Hyperlipidemia Hypertension Osteoarthritis PUD (peptic ulcer disease) Surgical History Surgical History History of spinal surgery Social History Social History Smoking status: Never smoker Alcohol intake: never Drinks per week: 4 Substance use: never Substance use type: does not use Lack of Transportation: No Lack of Food: Never True Current Housing: I Have Housing Concerned About Future Housing: No Difficulty Paying Gas/Electric Bills: No Difficulty Paying for Meds: No Currently Unemployed: No Education: Bachelor's Degree Difficulty w/ Childcare or Family Care: No Living arrangements: with family Occupation/Education: retired Spiritual care concerns: No Comments At time of signature, agree with nursing past medical, surgical, social and family history. There is no relevant family history pertinent to the presenting complaint Exam Narrative: GENERAL: Well-appearing, well-nourished, and in no acute distress. HEAD: Normocephalic, atraumatic. EYES: PERRLA, conjunctivae clear NECK: Supple. CHEST: Speaks in full sentences. No respiratory distress. HEART: Regular rate and rhythm. Normal and equal peripheral pulses. EXTREMITIES: Left lower extremity has grossly normal strength and sensation, limited range of motion. No edema or ecchymosis. ormal sensation with sensitivity to light touch and pain. Lateral hip tenderness. Distal pulses palpable and equal bilaterally, skin warm, dry, pink. Capillary refill less than 3 seconds. SKIN: Warm, dry NEURO: Alert and oriented x3. PSYCH: Normal mood and affect Course Course Emergency Course: Patient is aware of, understands and agrees to be transferred to the emergency room. Patient agrees to be transferred via EMS Portions of this record may have been created with voice recognition software Level of Care: Express Care Visit Vital Signs Vital signs: Reviewed. Transfer Transfered to: [facility] Transportation: ALS Transfer rationale: Hip fracture Accepting physician: Jayy Dover MDM - Fall MDM Narrative Medical decision making narrative: I evaluated this patient in the express care. History is obtained from patient who is an independent historian and physical exam was performed.? Available medical records were reviewed. ? Exam findings and relevant testing warrant further evaluation emergency room; patient is non-toxic appearing and is in no distress. ? Imaging Data My im
[2023-08-29 10:28] VITALS: BP 109/69; PULSE 74; RESP 16; TEMP 37.2; O2SAT 100
== END 2023-08-29 11:10 | disposition short-term general hospital (02) ==
PROVIDERS: Emergency Provider Nurse Practitioner; PCP Internal Medicine
DX: S72.112A Displaced fracture of greater trochanter of left femur, initial encounter for closed fracture (principal); W01.0XXA Fall on same level from slipping, tripping and stumbling without subsequent striking against object, initial encounter; Y93.K1 Activity, walking an animal; E78.5 Hyperlipidemia, unspecified; I10 Essential (primary) hypertension; M19.90 Unspecified osteoarthritis, unspecified site
CPT/HCPCS: 73502; 99215; G0463

== ENCOUNTER 2023-08-29 11:38 | Inpatient (IN) | payer MEDICARE, SELFPAY ==
--- NOTE | ~2023-08-29 | XR_ITS ---
EXAMINATION: XR hip LT 2V w AP pelvis DATE: 08/29/2023 12:31 INDICATION: Left hip pain. TECHNIQUE: An anteroposterior view of the pelvis and 3 views of left hip were obtained. COMPARISON: Pelvis and left hip radiographs at 10:16 AM FINDINGS: There is lumbar dextrocurvature and severe spondylosis. There is a fracture of greater troc hanter of proximal left femur in near-anatomic alignment. There is mild osteoarthritis of the hips. IMPRESSION: 1. Fracture of greater trochanter of proximal left femur. 2. Mild osteoarthritis of the hips. Reviewed, dictated and finalized at location A.
--- NOTE | ~2023-08-29 | XR_ITS ---
EXAMINATION: XR chest 1V portable DATE: 08/29/2023 13:03 INDICATION: Hypertension. Preop. TECHNIQUE: A single frontal view of the chest was obtained. COMPARISON: Chest view 12/20/2022 FINDINGS: There is no pneumonia, pleural effusion, or pneumothorax. The heart size is normal. IMPRESSION: 1. No acute cardiopulmonary disease. Reviewed, dictated and finalized at location A.
--- NOTE | ~2023-08-29 | CT_ITS ---
EXAMINATION: CT hip LT wo con DATE: 08/29/2023 14:09 INDICATION: Left hip fracture TECHNIQUE: High resolution computed tomography (CT) of the left hip was performed without intravenous contrast. Additional sagittal and coronal reconstructions were performed. Automated exposure control and iterative reconstruction technique were employed. The dose-length product was 169.97 mGy-cm. COMPARISON: Radiographs dated 08/29/2023 FINDINGS: Diffuse osteopenia. There is some proximal distraction of a comminuted fracture of the left greater t rochanter with up to 2 similar separation along the posterior margin of the fracture. Soft tissue den sity between the fracture fragments likely representing a subdural hematoma. No fracture or compromise in the weightbearing axis of the femur. 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 No fracture of the visualized left hemipelvis. Small heterotopic ossicle along the distal left iliopsoas tendon. Additional small heterotopic ossicles along the proximal left hamstring tendon s with subtle small region of fluid density centrally within the more proximal tendon which suggests likely chronic partial tear. There are few diverticula within the visualized colon. Visual is portion s the bladder is unremarkable. No pathologically enlarged left abdominal or inguinal lymphadenopathy. IMPRESSION: 1. Mild proximal distraction of a comminuted likely avulsion fracture at the left greater trochanter. 2. Suggestion of possible chronic partial tear of the proximal left hamstring tendons. Reviewed, dictated and finalized at location A. IMPRESSION: 1. Mild proximal distraction of a comminuted likely avulsion fracture at the le ft greater trochanter. 2. Suggestion of possible chronic partial tear of the proximal left hamstring t endons.
[2023-08-29 11:40] VITALS: BP 145/71; PULSE 72; RESP 18; TEMP 36.4; O2SAT 99
--- NOTE | 2023-08-29 12:49 | ECG_ITS ---
Test Date: 2023-08-29 13:03:39 Measurements Intervals [place] Rate: 65 P: 36 [place]: 161 QRS: -27 QRSD: 88 T: 40 QT: 378 QTc: 394 Interpretive Statements SINUS RHYTHM LEFT AXIS DEVIATION [QRS AXIS < -20] ABNORMAL ECG No previous ECG available for comparison Electronically Signed On 08-29-2023 15:26:43 CDT by Xu Kee M.D.
[2023-08-29 13:41] LABS: Basophils Percent Auto 0.3 % (0.2-1.2); Eosinophils Percent Auto 0.2 % (0-4.4); Hematocrit 34.4 % (42.0-52.0); Hemoglobin 11.2 g/dL (14.0-18.0); Immature Granulocyte Absolute 0.02 K/mm3 (0.00-0.031); Immature Granulocyte Percent A 0.2 % (0-0.5); Lymphocytes Absolute Auto 1.14 K/mm3 (0.9-3.2); Lymphocytes Percent Auto 12.5 % (18.3-44.2); Mean Corpuscular HGB Conc 32.6 g/dl (32-36); Mean Corpuscular Hemoglobin 31.7 pg (26-34); Mean Corpuscular Volume 97.5 fl (80-100); Mean Platelet Volume 10.3 fl (7.4-10.4); Monocytes Absolute Auto 0.7 K/mm3 (0.1-0.6); Monocytes Percent Auto 7.7 % (2.6-8.5); Neutrophils Absolute Auto 7.2 K/mm3 (1.3-6.7); Neutrophils Percent Auto 79.1 % (45.5-73.1); Platelet Count Result 187 k/mm3 (150-375); Red Blood Count 3.53 M/mm3 (4.6-6.20); Red Cell Distribution Width 13.4 % (11.5-14.5); White Blood Count 9.2 K/mm3 (4.5-10.0)
[2023-08-29 13:50] LABS: Alanine Aminotransferase 20 U/L (6-50); Albumin Level 3.8 g/dL (3.5-5.1); Alkaline Phosphatase 64 U/L (38-126); Anion Gap 3 mmol/L (4-12); Aspartate Amino Transferase 35 U/L (17-59); Bilirubin,Total 0.4 mg/dL (0.2-1.3); Blood Urea Nitrogen 32 mg/dL (9-20); Calcium 8.8 mg/dL (8.4-10.2); Carbon Dioxide 28 mmol/L (22-30); Chloride 109 mmol/L (98-107); Estimated CRCL calculation 38 ml/min; Estimated Glomerular Filt Rate 58; Glucose 100 mg/dL (65-110); Potassium 4.5 mmol/L (3.4-5.0); Sodium 140 mmol/L (137-145)
[2023-08-29 13:51] LABS: Prothrombin Time 13.5 Seconds (11.1-14.7)
[2023-08-29] MEDS: HYDROcodone/acetaminophen (*CRX) 5-325 MG TABLET 1 TAB PO (14:35)
--- NOTE | 2023-08-29 14:58 | ED.LOWEXIN ---
HPI - Extremity Injury (Lower) General Chief Complaint: Extremity Injury, Lower Stated Complaint: L hip fx Time Seen by Provider: 08/29/23 11:53 Source: patient Mode of arrival: EMS Limitations: no limitations History of Present Illness HPI Narrative: 82-year-old with a history of hypertension, hyperlipidemia here with complaints of left hip pain. Patient states that he was walking his dog this morning and his talk accidentally took off and he lost his balance landed on his left hip. He denies any head and neck injuries. No loss of consciousness. MD complaint: hip injury and fall Onset (ago): minute(s) (30) Place: street/outdoors Severity: moderate Relieving factors: nothing Exacerbating factors: weight bearing and movement Context: fall Other symptoms: none Related Data Home Medications Medication Instructions Recorded Confirmed amlodipine 5 mg tablet 5 mg PO DAILY 06/30/19 08/29/23 atorvastatin 80 mg tablet 80 mg PO DAILY 06/30/19 08/29/23 aspirin 81 mg tablet 81 mg PO DAILY 01/04/20 08/29/23 Allergies Allergy/AdvReac Type Severity Reaction Status Date / Time bee venom protein (honey bee) Allergy Severe Anaphylaxis Verified 08/29/23 10:07 Review of Systems Review of Systems: All systems reviewed & are unremarkable except as noted in HPI and below Constitutional: Constitutional: Reports no additional constitutional complaints Eyes: Eyes: Reports no additional eye complaints ENT: Reports system reviewed and no additional complaints, except as documented Cardiovascular: Cardiovascular: Reports no additional cardiovascular complaints Respiratory: Respiratory: Reports no additional respiratory complaints Gastrointestinal: Gastrointestinal: Reports no additional gastrointestinal complaints Musculoskeletal: Musculoskeletal: Reports as per HPI Neurologic: Reports system reviewed and no additional complaints, except as documented REPLACED BY [facility] Past Medical History Medical History Greater trochanteric bursitis of left hip Hyperlipidemia Hypertension Osteoarthritis PUD (peptic ulcer disease) Surgical History Surgical History History of spinal surgery Social History Social History Smoking status: Never smoker Alcohol intake: never Drinks per week: 4 Substance use: never Substance use type: does not use Lack of Transportation: No Lack of Food: Never True Current Housing: I Have Housing Concerned About Future Housing: No Difficulty Paying Gas/Electric Bills: No Difficulty Paying for Meds: No Currently Unemployed: No Education: Bachelor's Degree Difficulty w/ Childcare or Family Care: No Living arrangements: with family Occupation/Education: retired Spiritual care concerns: No Exam Narrative: GENERAL: Well-appearing, well-nourished, and in no acute distress. HEAD: Normocephalic, atraumatic. EYES: PERRLA and EOMI. ENT: Nares clear, no rhinorrhea or epistaxis. Mucous membranes moist. NECK: Supple. CHEST: Clear to auscultation. No respiratory distress. HEART: Regular rate and rhythm. No murmur heard. Normal peripheral pulses. ABDOMEN: Soft, nontender, nondistended, normal active bowel sounds. EXTREMITIES: Normal range of motion. No edema LEFT Hip tenderness on palpation , no shortening or rotation SKIN: Warm, dry, no rash. NEURO: No focal deficits. Alert and oriented x3. PSYCH: Normal mood and affect. Course Course Emergency Course: Notified patient about his x-ray and CT findings. I discussed with Dr. Rodriguez recommended admission to the hospitalist and they will consult the patient Reevaluation(s) Reevaluation #1: Pain is much improved did inform him about the lab work CT findings. Agreeable with admission. Time: 15:04 Vital Signs Vital signs: Vital Signs Temperature 36.4 C 08/29/23 11:40
[2023-08-29 15:05] VITALS: BP 150/61; PULSE 65; RESP 15; O2SAT 98
[2023-08-29 16:17] VITALS: BP 142/70; PULSE 62; RESP 16; TEMP 36.6; O2SAT 100
[2023-08-29 16:24] VITALS: BMI 23.5
--- NOTE | 2023-08-29 16:30 | PM.CNOR ---
Assessment and Plan Assessment and plan (1) Fracture of greater trochanter of left femur: Qualifiers: Encounter type: initial encounter Fracture alignment: nondisplaced Fracture type: closed Qualified Code(s): S72.115A - Nondisplaced fracture of greater trochanter of left femur, initial encounter for closed fracture Code(s): S72.112A - Displaced fracture of greater trochanter of left femur, initial encounter for closed fracture Status: Acute Assessment and Plan: CT does not show extension. Nonoperative treatment. Touch weight bearing. Will need placement. History of Present Illness HPI Consult date: 08/29/23 Chief complaint: L Greater Trochanteric Fracture Review of Systems Review of Systems: All systems reviewed & are unremarkable except as noted in HPI and below Constitutional: Constitutional: Reports no additional constitutional complaints Eyes: Eyes: Reports no additional eye complaints ENT: Reports system reviewed and no additional complaints, except as documented Cardiovascular: Cardiovascular: Reports no additional cardiovascular complaints Respiratory: Respiratory: Reports no additional respiratory complaints Gastrointestinal: Gastrointestinal: Reports no additional gastrointestinal complaints Musculoskeletal: Musculoskeletal: Reports as per HPI Neurologic: Reports system reviewed and no additional complaints, except as documented [facility] Past Medical History Medical History Greater trochanteric bursitis of left hip Hyperlipidemia Hypertension Osteoarthritis PUD (peptic ulcer disease) Surgical History Surgical History History of spinal surgery Social History Social History Smoking status: Never smoker Alcohol intake: never Drinks per week: 4 Substance use: never Substance use type: does not use Lack of Transportation: No Lack of Food: Never True Current Housing: I Have Housing Concerned About Future Housing: No Difficulty Paying Gas/Electric Bills: No Difficulty Paying for Meds: No Currently Unemployed: No Education: Bachelor's Degree Difficulty w/ Childcare or Family Care: No Living arrangements: with family Occupation/Education: retired Spiritual care concerns: No Meds Home Medications and Allergies Home Medications Medication Instructions Recorded Confirmed Type amlodipine 5 mg tablet 5 mg PO DAILY 06/30/19 08/29/23 History atorvastatin 80 mg tablet 80 mg PO DAILY 06/30/19 08/29/23 History aspirin 81 mg tablet 81 mg PO DAILY 01/04/20 08/29/23 History Allergies Allergy/AdvReac Type Severity Reaction Status Date / Time bee venom protein (honey bee) Allergy Severe Anaphylaxis Verified 08/29/23 10:07 Vital Signs Vital Signs - 24 hr 08/29/23 11:40 08/29/23 15:05 08/29/23 16:17 Temperature 97.6 F 97.8 F Pulse Rate 72 65 62 Respiratory Rate 18 15 16 Blood Pressure 145/71 H 150/61 H 142/70 H Pulse Oximetry 99 98 100 Oxygen Delivery Room Air Exam Narrative: Pain with motion. Wiggles toes Results Labs 08/29/23 13:34 08/29/23 13:34 Labs: Abnormal lab results 08/29/23 Range/Units 13:34 RBC 3.53 L (4.6-6.20) M/mm3 Hgb 11.2 L (14.0-18.0) g/dL Hct 34.4 L (42.0-52.0) % Neut % (Auto) 79.1 H (45.5-73.1) % Lymph % (Auto) 12.5 L (18.3-44.2) % [place] # (Auto) 0.7 H (0.1-0.6) K/mm3 Absolute Neuts (auto) 7.2 H (1.3-6.7) K/mm3 Chloride 109 H (98-107) mmol/L Anion Gap 3 L (4-12) mmol/L BUN 32 H (9-20) mg/dL Estimated GFR 58 L (59 - ) H & H 08/29/23 Range/Units 13:34 Hgb 11.2 L (14.0-18.0) g/dL Hct 34.4 L (42.0-52.0) % Coagulation 08/29/23 Range/Units 13:34 INR 1.0 All other labs normal.
--- NOTE | 2023-08-29 17:26 | PM.IMHP ---
H&P: HPI History of Present Illness Date/Time: 08/29/23 17:26 Chief Complaint: Fall Narrative: 82 y/o M presents here with for further evaluation of a left hip/femur fx post-fall with PMH of HTN, HLD, osteoarthritis, and PUD. The patient presents here via EMS from [facility] for further evaluation of a left hip/femur fracture post-ground level fall. Patient reports that he was walking his dog this morning when his dog took off after a squirrel which caused him to lose his balance. The patient fell onto his left side landing on his left hip. Denies head strike or loss of consciousness. Was able to ambulate post fall, however weight-bearing and movement do exacerbate his left hip pain. Imaging at [facility] showed a fracture of the greater trochanter of the proximal left femur and mild osteoarthritis of the hips. Patient reports he is not on a blood thinner. No numbness or tingling to the affected extremity. At baseline he does not use a assistive device. No other complaints at this time. Initial VS at presentation: 97.6? F, HR 72, R 18, 145/71, and 99% on RA. ED workup showed: No leukocytosis, hemoglobin 11.2 (near baseline, last 12.2 in 2022), creatinine 1.2 and GFR 58, glucose 100. XR of the hip showed fracture of the greater trochanter of the proximal left femur. CXR showed no acute cardiopulmonary disease. CT of the hip showed mild proximal distraction of a comminuted likely avulsion fracture at the left greater trochanter and suggestion of possible chronic partial tear of the proximal left hamstring tendons. Review of Systems Review of Systems: All systems reviewed & are unremarkable except as noted in HPI and below PMFSH Past Medical History Medical History BPH (benign prostatic hyperplasia) Chronic sinusitis Greater trochanteric bursitis of left hip Hyperlipidemia Hypertension Osteoarthritis PUD (peptic ulcer disease) Surgical History Surgical History History of spinal surgery correction of lumbar stenosis Social History Social History Smoking status: Never smoker Alcohol intake: never Drinks per week: 4 Substance use: never Substance use type: does not use Do You Feel Safe in your Home?: Yes Lack of Transportation: No Lack of Food: Never True Current Housing: I Have Housing Concerned About Future Housing: No Difficulty Paying Gas/Electric Bills: No Difficulty Paying for Meds: No Currently Unemployed: No Education: Bachelor's Degree Difficulty w/ Childcare or Family Care: No Living arrangements: with family Occupation/Education: retired Spiritual care concerns: No Meds Home Medications and Allergies Home Medications Medication Instructions Recorded Confirmed Type amlodipine 5 mg tablet 5 mg PO DAILY 06/30/19 08/29/23 History atorvastatin 80 mg tablet 80 mg PO DAILY 06/30/19 08/29/23 History aspirin 81 mg tablet 81 mg PO DAILY 01/04/20 08/29/23 History ezetimibe 10 mg tablet 10 mg PO DAILY 08/29/23 08/29/23 History Allergies Allergy/AdvReac Type Severity Reaction Status Date / Time bee venom protein (honey bee) Allergy Severe Anaphylaxis Verified 08/29/23 10:07 Vital Signs Vital Signs - 24 hr 08/29/23 11:40 08/29/23 15:05 08/29/23 16:17 Temperature 97.6 F 97.8 F Pulse Rate 72 65 62 Respiratory Rate 18 15 16 Blood Pressure 145/71 H 150/61 H 142/70 H Pulse Oximetry 99 98 100 Oxygen Delivery Room Air 08/29/23 16:57 Temperature Pulse Rate Respiratory Rate Blood Pressure Pulse Oximetry Oxygen Delivery Room Air Exam Const: General: comfortable and no acute distress Other: , male, nontoxic appearance HENMT: Face/Nose/Sinus: Normal nares present Mouth: Yes moist mucous membranes Eyes: General: appearance normal, millicent
[2023-08-29 19:45] VITALS: BP 117/83; PULSE 64; RESP 18; TEMP 36.8; O2SAT 100
[2023-08-29] MEDS: ACETAMINOPHEN 500 MG TABLET 1000 MG PO (22:11)
[2023-08-30 04:39] LABS: Hemoglobin 9.9 g/dL (14.0-18.0); Mean Corpuscular HGB Conc 31.9 g/dl (32-36); Mean Corpuscular Hemoglobin 31.3 pg (26-34); Mean Corpuscular Volume 98.1 fl (80-100); Mean Platelet Volume 10.6 fl (7.4-10.4); Platelet Count Result 160 k/mm3 (150-375); Red Blood Count 3.16 M/mm3 (4.6-6.20); Red Cell Distribution Width 13.3 % (11.5-14.5); White Blood Count 7.6 K/mm3 (4.5-10.0)
[2023-08-30 04:48] LABS: Anion Gap 4 mmol/L (4-12); Blood Urea Nitrogen 26 mg/dL (9-20); Calcium 8.7 mg/dL (8.4-10.2); Carbon Dioxide 27 mmol/L (22-30); Chloride 107 mmol/L (98-107); Estimated CRCL calculation 42 ml/min; Estimated Glomerular Filt Rate > 60; Glucose 110 mg/dL (65-110); Potassium 4.4 mmol/L (3.4-5.0); Sodium 138 mmol/L (137-145)
[2023-08-30 05:10] VITALS: BP 112/55; PULSE 62; RESP 18; TEMP 36.6; O2SAT 96
--- NOTE | 2023-08-30 07:31 | PM.PNORT ---
Progress Note: A&P Assessment and Plan (1) Fracture of greater trochanter of left femur: Qualifiers: Encounter type: initial encounter Fracture alignment: nondisplaced Fracture type: closed Qualified Code(s): S72.115A - Nondisplaced fracture of greater trochanter of left femur, initial encounter for closed fracture Code(s): S72.112A - Displaced fracture of greater trochanter of left femur, initial encounter for closed fracture Status: Acute Assessment and Plan: Pain well controlled. Ambulate today. Awaiting placement. Subjective Subjective Date/Time Seen: 08/30/23 07:31 Principal diagnosis: Left Greater Trochanteric Fracture Review of Systems Review of Systems: All systems reviewed & are unremarkable except as noted in HPI and below Constitutional: Constitutional: Reports no additional constitutional complaints Eyes: Eyes: Reports no additional eye complaints ENT: Reports system reviewed and no additional complaints, except as documented Cardiovascular: Cardiovascular: Reports no additional cardiovascular complaints Respiratory: Respiratory: Reports no additional respiratory complaints Gastrointestinal: Gastrointestinal: Reports no additional gastrointestinal complaints Musculoskeletal: Musculoskeletal: Reports as per HPI Neurologic: Reports system reviewed and no additional complaints, except as documented Exam Narrative: Pain with motion. Wiggles toes Objective Data Vital Signs Vital Signs: Vital Signs - 24 hr 08/29/23 11:40 08/29/23 15:05 08/29/23 16:17 Temperature 97.6 F 97.8 F Pulse Rate 72 65 62 Respiratory Rate 18 15 16 Blood Pressure 145/71 H 150/61 H 142/70 H Pulse Oximetry 99 98 100 Oxygen Delivery Room Air 08/29/23 16:57 08/29/23 19:45 08/29/23 21:40 Temperature 98.3 F Pulse Rate 64 Respiratory Rate 18 Blood Pressure 117/83 Pulse Oximetry 100 Oxygen Delivery Room Air Room Air 08/30/23 05:10 Temperature 97.9 F Pulse Rate 62 Respiratory Rate 18 Blood Pressure 112/55 L Pulse Oximetry 96 Oxygen Delivery Intake/Output Intake/Output: Intake & Output 08/27/23 08/28/23 08/29/23 08/30/23 23:59 23:59 23:59 23:59 Intake Total 1340 200 Output Total 500 200 Balance 840 0 Meds/Results Medications: Active Medications Generic Name Dose Route Start Last Admin Trade Name Freq PRN Reason Stop Dose Admin Acetaminophen 650 mg 08/29/23 15:05 Acetaminophen 325 Mg Tablet PO Q4H PRN Mild Pain (1-3) or Fever Hydrocodone Bitart/Acetaminophen 1 tab 08/29/23 15:05 Hydrocodone/Acetaminophen (*Crx) 5-325 Mg Tablet PO Q4H PRN Pain Rated 4-6 Amlodipine Besylate 5 mg 08/30/23 09:00 Amlodipine Besylate 5 Mg Tablet PO DAILY [facility] Aspirin 81 mg 08/30/23 09:00 Aspirin 81 Mg Enteric Tablet PO 09/29/23 08:59 DAILY [facility] Atorvastatin Calcium 80 mg 08/30/23 09:00 Atorvastatin 40 Mg Tablet PO DAILY [facility] Ezetimibe 10 mg 08/30/23 09:00 Ezetimibe 10 Mg Tablet PO DAILY [facility] Morphine Sulfate 2 mg 08/29/23 15:05 Morphine Sulfate (*Crx) 2 Mg/Ml Inj IV PUSH Q2H PRN Pain Rated 7-10 Ondansetron HCl 4 mg 08/29/23 15:05 Ondansetron Inj 4 Mg/2 Ml Vial IV PUSH Q4H PRN Nausea Radiology Results: ITS Impressions Hip/Pelvis X-Ray 08/29/23 12:38 IMPRESSION: 1. Fracture of greater trochanter of proximal left femur. 2. Mild osteoarthritis of the hips. Chest X-Ray 08/29/23 13:22 IMPRESSION: 1. No acute cardiopulmonary disease. Hip CT 08/29/23 14:18 IMPRESSION: 1. Mild proximal distraction of a comminuted likely avulsion fracture at the left greater trochanter. 2. Suggestion of possible chronic partial tear of the proximal left hamstring tendons. Labs Labs: Laboratory Results - last 24 hr 08/29/23 08/30/23 13:34 04:04 WBC 9.2 7.6 RBC 3.53 L 3.16 L Hgb 11.2 L 9.9 L Hct 34.4 L 31.0 L M
[2023-08-30 09:46] VITALS: BP 148/67
[2023-08-30] MEDS: ATORVASTATIN 40 MG TABLET 80 MG PO (09:48)
[2023-08-30] MEDS: amLODIPine BESYLATE 5 MG TABLET PO (09:48)
[2023-08-30] MEDS: EZETIMIBE 10 MG TABLET PO (09:48)
[2023-08-30] MEDS: ASPIRIN 81 MG ENTERIC TABLET PO (09:48)
[2023-08-30 12:15] LABS: Hematocrit 31.5 % (42.0-52.0); Hemoglobin 10.4 g/dL (14.0-18.0)
--- NOTE | 2023-08-30 12:40 | PM.IMPN ---
Progress Note: A&P Assessment and Plan (1) Fracture of greater trochanter of left femur: Qualifiers: Encounter type: initial encounter Fracture alignment: nondisplaced Fracture type: closed Qualified Code(s): S72.115A - Nondisplaced fracture of greater trochanter of left femur, initial encounter for closed fracture Code(s): S72.112A - Displaced fracture of greater trochanter of left femur, initial encounter for closed fracture Status: Acute Assessment and Plan: CT shows comminuted fracture of the left greater trochanter with possible chronic tear of the left hamstring -ortho has been consulted who recommend conservative treatment -weight-bearing status as ordered -patient is doing well with physical therapy and we are looking at acute rehab verses home. I spoke with the daughter and patient extensively who want to see how he is doing tomorrow. If he continues to do well with physical therapy they will consider him going home although he lives alone but he has no stairs. He is typically very active at baseline. Daughter lives out of town but will be here until he gets settled -I spoke with care coordination about plan of care, will wait to see how he does with physical therapy tomorrow -will add Lovenox for DVT prophylaxis. Hemoglobin stable -pain medication p.r.n. (2) Hypertension: Qualifiers: Hypertension type: primary hypertension Qualified Code(s): I10 - Essential (primary) hypertension Code(s): I10 - Essential (primary) hypertension Status: Acute Assessment and Plan: Chronic, continue amlodipine (3) Chronic anemia: Code(s): D64.9 - Anemia, unspecified Status: Acute Assessment and Plan: Noted on labs -repeat hemoglobin stable today. No bleeding suspected or excessive bruising -monitor daily labs (4) Gastritis: Code(s): K29.70 - Gastritis, unspecified, without bleeding Status: Acute Assessment and Plan: Patient has history of gastritis back in 2020, will start short term PPI therapy to avoid stress ulcers in the setting of anemia and hip fx Plan Patient's daughter states patient takes a medication for vertigo every day but they are unsure of this medication. She is going to go home and look and let us know. Likely discharge in 1-2 days Time Spent With Patient Time with patient: 25 - 35 minutes Subjective Date/time seen: 08/30/23 12:40 Interval history: Pt is a 82-year-old male who is here for left hip fracture. Patient was seen with daughter at bedside. He states he is doing well and his pain is under control. He has been up and walking to the bathroom and femoral doing okay. He denies chest pain, shortness he breath, fevers, chills, nausea or vomiting. He is eating and drinking okay. Last bowel movement was today. We had a long discussion about going home versus rehab. Patient and daughter want to see how he does and if he still does well tomorrow maybe he could be discharged home. He has no stairs in his house. He does live alone Review of Systems Review of Systems: All systems reviewed & are unremarkable except as noted in HPI and below Exam Narrative: General: Well developed well nourished patient in NAD HEENT: normocephalic Neck: supple Neuro: Alert and oriented x4 CV:RRR Resp:CTA Abd: Soft, non distended. No pain to palpation. Positive bowel sounds Extremities: Pain to palpation to the left hip. No bruising to the area. No lower extremity edema bilaterally. Pulses intact. Objective Data Vital Signs Vital Signs: Vital Signs - 24 hr 08/29/23 15:05 08/29/23 16:17 08/29/23 16:57 Temperature 97.8 F Pulse Rate 65 62 Respiratory Rate 15 16 Blood Pressure 150/61 H 142/70 H Pulse Oximetry 98 100 Oxygen Delivery Room Air 08/29/23 19:45 08/29/23 21:40 08/30/23 05:10 Temperature 98.3 F 97.9 F Pulse Rate 64 62 Respiratory Rate 18 18
[2023-08-30] MEDS: ENOXAPARIN 40 MG/0.4 ML SYRINGE SUB-Q (13:08)
[2023-08-30 14:00] VITALS: BP 131/65; PULSE 70; RESP 16; TEMP 36.9; O2SAT 99
--- NOTE | 2023-08-30 20:49 | PM.EVENT ---
Event Note Event Note Event Note: pt family requested pt be allowed to continue use of his medication Betahistine 8mg Capsule TID for tx of Meniere's
[2023-08-30 20:56] VITALS: BP 127/60; PULSE 67; RESP 16; TEMP 37; O2SAT 98
--- NOTE | 2023-08-30 20:57 | PHAR ---
PATIENT BROUGHT IN RX [id number] WHICH CONTAINED UN-IDENTIFIABLE WHITE CAPSULES BOTTLE LABELED BETAHISTINE 2*HCL 8MG CAPSULE(P#[id number]) BOTTLE STATES IT IS A COMPOUNDED PRESCRIPTION SPECIFICALLY FOR THIS PATIENT DIRECTIONS LISTED ARE 1 CAPSULE TID
[2023-08-31 05:14] LABS: Hematocrit 28.9 % (42.0-52.0); Hemoglobin 9.5 g/dL (14.0-18.0)
[2023-08-31 06:00] VITALS: BP 115/57; PULSE 68; RESP 16; TEMP 36.8; O2SAT 99
--- NOTE | 2023-08-31 07:13 | PM.PNORT ---
Progress Note: A&P Assessment and Plan (1) Fracture of greater trochanter of left femur: Qualifiers: Encounter type: initial encounter Fracture alignment: nondisplaced Fracture type: closed Qualified Code(s): S72.115A - Nondisplaced fracture of greater trochanter of left femur, initial encounter for closed fracture Code(s): S72.112A - Displaced fracture of greater trochanter of left femur, initial encounter for closed fracture Status: Acute Assessment and Plan: Progressing slowly. Awaiting placement. Subjective Subjective Date/Time Seen: 08/31/23 07:13 Principal diagnosis: Greater Trochanteric Fracture LEFT Review of Systems Review of Systems: All systems reviewed & are unremarkable except as noted in HPI and below Constitutional: Constitutional: Reports no additional constitutional complaints Eyes: Eyes: Reports no additional eye complaints ENT: Reports system reviewed and no additional complaints, except as documented Cardiovascular: Cardiovascular: Reports no additional cardiovascular complaints Respiratory: Respiratory: Reports no additional respiratory complaints Gastrointestinal: Gastrointestinal: Reports no additional gastrointestinal complaints Musculoskeletal: Musculoskeletal: Reports as per HPI Neurologic: Reports system reviewed and no additional complaints, except as documented Exam Narrative: NVI. Pain with motion Objective Data Vital Signs Vital Signs: Vital Signs - 24 hr 08/30/23 08:00 08/30/23 08:13 08/30/23 09:46 Temperature Pulse Rate Respiratory Rate Blood Pressure 148/67 H Pulse Oximetry Oxygen Delivery Room Air Room Air 08/30/23 09:50 08/30/23 14:00 08/30/23 20:56 Temperature 98.5 F 98.6 F Pulse Rate 70 67 Respiratory Rate 16 16 Blood Pressure 131/65 127/60 Pulse Oximetry 99 98 Oxygen Delivery Room Air 08/30/23 20:45 Temperature Pulse Rate Respiratory Rate Blood Pressure Pulse Oximetry Oxygen Delivery Room Air Intake/Output Intake/Output: Intake & Output 08/28/23 08/29/23 08/30/23 08/31/23 23:59 23:59 23:59 23:59 Intake Total 1340 1370 Output Total 500 200 Balance 840 1170 Meds/Results Medications: Active Medications Generic Name Dose Route Start Last Admin Trade Name Freq PRN Reason Stop Dose Admin Acetaminophen 650 mg 08/29/23 15:05 Acetaminophen 325 Mg Tablet PO Q4H PRN Mild Pain (1-3) or Fever Hydrocodone Bitart/Acetaminophen 1 tab 08/29/23 15:05 Hydrocodone/Acetaminophen (*Crx) 5-325 Mg Tablet PO Q4H PRN Pain Rated 4-6 Amlodipine Besylate 5 mg 08/30/23 09:00 08/30/23 09:48 Amlodipine Besylate 5 Mg Tablet PO 5 mg DAILY [facility] Administration Aspirin 81 mg 08/30/23 09:00 08/30/23 09:48 Aspirin 81 Mg Enteric Tablet PO 09/29/23 08:59 81 mg DAILY [facility] Administration Atorvastatin Calcium 80 mg 08/30/23 09:00 08/30/23 09:48 Atorvastatin 40 Mg Tablet PO 80 mg DAILY [facility] Administration Ezetimibe 10 mg 08/30/23 09:00 08/30/23 09:48 Ezetimibe 10 Mg Tablet PO 10 mg DAILY [facility] Administration Enoxaparin Sodium 40 mg 08/30/23 12:50 08/30/23 13:08 Enoxaparin 40 Mg/0.4 Ml Syringe SUB-Q 40 mg DAILY [facility] Administration Melatonin 5 mg 08/30/23 23:39 Melatonin 5 Mg Tablet PO HS PRN Insomnia Morphine Sulfate 2 mg 08/29/23 15:05 Morphine Sulfate (*Crx) 2 Mg/Ml Inj IV PUSH Q2H PRN Pain Rated 7-10 Non-Formulary Medication 8 mg 08/31/23 09:00 Betahistine BY MOUTH 09/30/23 08:59 TID [facility] Ondansetron HCl 4 mg 08/29/23 15:05 Ondansetron Inj 4 Mg/2 Ml Vial IV PUSH Q4H PRN Nausea Pantoprazole Sodium 40 mg 08/30/23 12:50 08/30/23 13:05 Pantoprazole 40 Mg Tablet PO Not Given [facility] Radiology Results: ITS Impressions Hip/Pelvis X-Ray 08/29/23 12:38 IMPRESSION: 1. Fracture of greater trochanter of proximal left femur. 2.
--- NOTE | 2023-08-31 07:25 | PM.IMPN ---
Progress Note: A&P Assessment and Plan (1) Fracture of greater trochanter of left femur: Qualifiers: Encounter type: initial encounter Fracture alignment: nondisplaced Fracture type: closed Qualified Code(s): S72.115A - Nondisplaced fracture of greater trochanter of left femur, initial encounter for closed fracture Code(s): S72.112A - Displaced fracture of greater trochanter of left femur, initial encounter for closed fracture Status: Acute Assessment and Plan: 08/31/23: Continue PT and OT Care coordination working on rehab needs Continue pain control. (2) Hypertension: Qualifiers: Hypertension type: primary hypertension Qualified Code(s): I10 - Essential (primary) hypertension Code(s): I10 - Essential (primary) hypertension Status: Acute Assessment and Plan: 08/31/23: Continue amiodarone (3) Chronic anemia: Code(s): D64.9 - Anemia, unspecified Status: Acute Assessment and Plan: 08/31/23: Hgb 9.5 Continue to monitor (4) Gastritis: Code(s): K29.70 - Gastritis, unspecified, without bleeding Status: Acute Assessment and Plan: 08/31/23: Continue Protonix Time Spent With Patient Time with patient: Greater than 35 minutes Subjective Date/time seen: 08/31/23 07:25 Interval history: 08/29/23:(copy forward from chart) 82 y/o M presents here with for further evaluation of a left hip/femur fx post-fall with PMH of HTN, HLD, osteoarthritis, and PUD. The patient presents here via EMS from [facility] for further evaluation of a left hip/femur fracture post-ground level fall. Patient reports that he was walking his dog this morning when his dog took off after a squirrel which caused him to lose his balance. The patient fell onto his left side landing on his left hip. Denies head strike or loss of consciousness. Was able to ambulate post fall, however weight-bearing and movement do exacerbate his left hip pain. Imaging at [facility] showed a fracture of the greater trochanter of the proximal left femur and mild osteoarthritis of the hips. Patient reports he is not on a blood thinner. No numbness or tingling to the affected extremity. At baseline he does not use a assistive device. No other complaints at this time. Initial VS at presentation: 97.6? F, HR 72, R 18, 145/71, and 99% on RA. ED workup showed: No leukocytosis, hemoglobin 11.2 (near baseline, last 12.2 in 2022), creatinine 1.2 and GFR 58, glucose 100. XR of the hip showed fracture of the greater trochanter of the proximal left femur. CXR showed no acute cardiopulmonary disease. CT of the hip showed mild proximal distraction of a comminuted likely avulsion fracture at the left greater trochanter and suggestion of possible chronic partial tear of the proximal left hamstring tendons. 08/30/23: (Copy forward from chart) Pt is a 82-year-old male who is here for left hip fracture. Patient was seen with daughter at bedside. He states he is doing well and his pain is under control. He has been up and walking to the bathroom and femoral doing okay. He denies chest pain, shortness he breath, fevers, chills, nausea or vomiting. He is eating and drinking okay. Last bowel movement was today. We had a long discussion about going home versus rehab. Patient and daughter want to see how he does and if he still does well tomorrow maybe he could be discharged home. He has no stairs in his house. He does live alone 08/31/23: On examination today patient is alert and oriented x3, lying in the bed. Patient denies any fever, chills, nausea, vomiting, diarrhea, abdominal pain, chest pain, shortness of breath. Patient endorses mild pain in left leg. Labs today were unremarkable. PT and OT recommending SNF. Case coordination following for rehab placement. Review of Systems Review of Systems: All systems reviewed & are unremark
--- NOTE | 2023-08-31 07:58 | PC.NURSE ---
Pt confused around 2300, Ax1, wanted to stand, leave hospital. Pt was not combative but wanted to leave hospital. Redirected and orientation reality. Daughter, Roxanne was called, left message. Per Dr. Stanley, requested to have patient sitter. He was able to sleep and back to Ax3 by 08/31/23@ 0700
[2023-08-31 08:24] VITALS: BP 135/62; PULSE 80
[2023-08-31] MEDS: amLODIPine BESYLATE 5 MG TABLET PO (09:01)
[2023-08-31] MEDS: ASPIRIN 81 MG ENTERIC TABLET PO (09:01)
[2023-08-31] MEDS: ATORVASTATIN 40 MG TABLET 80 MG PO (09:01)
[2023-08-31] MEDS: EZETIMIBE 10 MG TABLET PO (09:01)
[2023-08-31] MEDS: ENOXAPARIN 40 MG/0.4 ML SYRINGE SUB-Q (09:04)
[2023-08-31 10:52] VITALS: O2SAT 97
[2023-08-31 14:00] VITALS: BP 113/64; PULSE 74; RESP 17; TEMP 36.7; O2SAT 100
[2023-08-31] MEDS: ACETAMINOPHEN 325 MG TABLET 650 MG PO (14:28)
--- NOTE | 2023-08-31 14:33 | PC.NURSE ---
spoke with Raquel in [facility] to let her know therapy recommends SNF. Patient daughter would like to look into SNF around her home in [place], [place]. [facility] to follow-up tomorrow
[2023-08-31 21:34] VITALS: BP 145/64; PULSE 89; RESP 16; TEMP 36.6; O2SAT 100
[2023-09-01 04:00] VITALS: BP 137/60; PULSE 66; RESP 16; TEMP 36.7; O2SAT 97
[2023-09-01 04:57] LABS: Basophils Percent Auto 0.3 % (0.2-1.2); Eosinophils Absolute Auto 0.1 K/mm3 (0-0.3); Eosinophils Percent Auto 1.6 % (0-4.4); Hematocrit 27.4 % (42.0-52.0); Hemoglobin 8.9 g/dL (14.0-18.0); Immature Granulocyte Absolute 0.01 K/mm3 (0.00-0.031); Immature Granulocyte Percent A 0.2 % (0-0.5); Lymphocytes Absolute Auto 1.22 K/mm3 (0.9-3.2); Lymphocytes Percent Auto 19.6 % (18.3-44.2); Mean Corpuscular HGB Conc 32.5 g/dl (32-36); Mean Corpuscular Hemoglobin 31.9 pg (26-34); Mean Corpuscular Volume 98.2 fl (80-100); Mean Platelet Volume 10.3 fl (7.4-10.4); Monocytes Absolute Auto 0.9 K/mm3 (0.1-0.6); Monocytes Percent Auto 14.2 % (2.6-8.5); Neutrophils Percent Auto 64.1 % (45.5-73.1); Platelet Count Result 158 k/mm3 (150-375); Red Blood Count 2.79 M/mm3 (4.6-6.20); Red Cell Distribution Width 13.2 % (11.5-14.5); White Blood Count 6.2 K/mm3 (4.5-10.0)
[2023-09-01 05:16] LABS: Alanine Aminotransferase 15 U/L (6-50); Alkaline Phosphatase 56 U/L (38-126); Anion Gap 3 mmol/L (4-12); Aspartate Amino Transferase 25 U/L (17-59); Bilirubin,Total 0.7 mg/dL (0.2-1.3); Blood Urea Nitrogen 23 mg/dL (9-20); Calcium 8.4 mg/dL (8.4-10.2); Carbon Dioxide 26 mmol/L (22-30); Chloride 108 mmol/L (98-107); Estimated CRCL calculation 42 ml/min; Estimated Glomerular Filt Rate > 60; Glucose 111 mg/dL (65-110); Magnesium 2.1 mg/dL (1.6-2.3); Potassium 3.9 mmol/L (3.4-5.0); Sodium 137 mmol/L (137-145)
[2023-09-01 05:26] LABS: Albumin Level 3.2 g/dL (3.5-5.1)
--- NOTE | 2023-09-01 07:10 | PM.IMPN ---
Progress Note: A&P Assessment and Plan (1) Fracture of greater trochanter of left femur: Qualifiers: Encounter type: initial encounter Fracture alignment: nondisplaced Fracture type: closed Qualified Code(s): S72.115A - Nondisplaced fracture of greater trochanter of left femur, initial encounter for closed fracture Code(s): S72.112A - Displaced fracture of greater trochanter of left femur, initial encounter for closed fracture Status: Acute Assessment and Plan: 08/31/23: Continue PT and OT Care coordination working on rehab needs Continue pain control. 09/01/23: No change to current treatment plan (2) Hypertension: Qualifiers: Hypertension type: primary hypertension Qualified Code(s): I10 - Essential (primary) hypertension Code(s): I10 - Essential (primary) hypertension Status: Acute Assessment and Plan: 08/31/23: Continue amiodarone 09/01/23: No change to current treatment plan (3) Chronic anemia: Code(s): D64.9 - Anemia, unspecified Status: Acute Assessment and Plan: 08/31/23: Hgb 9.5 Continue to monitor 09/01/23: Hgb 8.9 No change to current treatment plan (4) Gastritis: Code(s): K29.70 - Gastritis, unspecified, without bleeding Status: Acute Assessment and Plan: 08/31/23: Continue Protonix 09/01/23: No change to current treatment plan Time Spent With Patient Time with patient: Greater than 35 minutes Subjective Date/time seen: 09/01/23 07:10 Interval history: 08/29/23:(copy forward from chart) 82 y/o M presents here with for further evaluation of a left hip/femur fx post-fall with PMH of HTN, HLD, osteoarthritis, and PUD. The patient presents here via EMS from [facility] for further evaluation of a left hip/femur fracture post-ground level fall. Patient reports that he was walking his dog this morning when his dog took off after a squirrel which caused him to lose his balance. The patient fell onto his left side landing on his left hip. Denies head strike or loss of consciousness. Was able to ambulate post fall, however weight-bearing and movement do exacerbate his left hip pain. Imaging at [facility] showed a fracture of the greater trochanter of the proximal left femur and mild osteoarthritis of the hips. Patient reports he is not on a blood thinner. No numbness or tingling to the affected extremity. At baseline he does not use a assistive device. No other complaints at this time. Initial VS at presentation: 97.6? F, HR 72, R 18, 145/71, and 99% on RA. ED workup showed: No leukocytosis, hemoglobin 11.2 (near baseline, last 12.2 in 2022), creatinine 1.2 and GFR 58, glucose 100. XR of the hip showed fracture of the greater trochanter of the proximal left femur. CXR showed no acute cardiopulmonary disease. CT of the hip showed mild proximal distraction of a comminuted likely avulsion fracture at the left greater trochanter and suggestion of possible chronic partial tear of the proximal left hamstring tendons. 08/30/23: (Copy forward from chart) Pt is a 82-year-old male who is here for left hip fracture. Patient was seen with daughter at bedside. He states he is doing well and his pain is under control. He has been up and walking to the bathroom and femoral doing okay. He denies chest pain, shortness he breath, fevers, chills, nausea or vomiting. He is eating and drinking okay. Last bowel movement was today. We had a long discussion about going home versus rehab. Patient and daughter want to see how he does and if he still does well tomorrow maybe he could be discharged home. He has no stairs in his house. He does live alone 08/31/23: On examination today patient is alert and oriented x3, lying in the bed. Patient denies any fever, chills, nausea, vomiting, diarrhea, abdominal pain, chest pain, shortness of breath. Patient endorses mild pain
[2023-09-01] MEDS: ATORVASTATIN 40 MG TABLET 80 MG PO (08:25)
[2023-09-01] MEDS: EZETIMIBE 10 MG TABLET PO (08:25)
[2023-09-01] MEDS: ASPIRIN 81 MG ENTERIC TABLET PO (08:25)
[2023-09-01] MEDS: PANTOPRAZOLE 40 MG TABLET PO (08:25)
[2023-09-01] MEDS: ENOXAPARIN 40 MG/0.4 ML SYRINGE SUB-Q (08:25)
[2023-09-01] MEDS: amLODIPine BESYLATE 5 MG TABLET PO (09:39)
--- NOTE | 2023-09-01 10:48 | P.PNIM_ITS ---
Progress Note: A&P Assessment and Plan (1) Fracture of greater trochanter of left femur: Qualifiers: Encounter type: initial encounter Fracture alignment: nondisplaced Fracture type: closed Qualified Code(s): S72.115A - Nondisplaced fracture of greater trochanter of left femur, initial encounter for closed fracture Code(s): S72.112A - Displaced fracture of greater trochanter of left femur, initial encounter for closed fracture Status: Acute Assessment and Plan: 08/31/23: * Continue PT and OT * Care coordination working on rehab needs * Continue pain control. 09/01/23: * No change to current treatment plan (2) Hypertension: Qualifiers: Hypertension type: primary hypertension Qualified Code(s): I10 - Essential (primary) hypertension Code(s): I10 - Essential (primary) hypertension Status: Acute Assessment and Plan: 08/31/23: * Continue amiodarone 09/01/23: * No change to current treatment plan (3) Chronic anemia: Code(s): D64.9 - Anemia, unspecified Status: Acute Assessment and Plan: 08/31/23: * Hgb 9.5 * Continue to monitor 09/01/23: * Hgb 8.9 * No change to current treatment plan (4) Gastritis: Code(s): K29.70 - Gastritis, unspecified, without bleeding Status: Acute Assessment and Plan: 08/31/23: * Continue Protonix 09/01/23: * No change to current treatment plan Subjective Date/time seen: 09/01/23 10:48 Interval history: 08/29/23:(copy forward from chart) 82 y/o M presents here with for further evaluation of a left hip/femur fx post- fall with PMH of HTN, HLD, osteoarthritis, and PUD. The patient presents here via EMS from [facility] for further evaluation of a left hip/femur fracture post-ground level fall. Patient reports that he was walking his dog this morning when his dog took off after a squirrel which caused him to lose his balance. The patient fell onto his left side landing on his left hip. Denies head strike or loss of consciousness. Was able to ambulate post fall, however weight-bearing and movement do exacerbate his left hip pain. Imaging at [facility] showed a fracture of the greater trochanter of the proximal left femur and mild osteoarthritis of the hips. Patient reports he is not on a blood thinner. No numbness or tingling to the affected extremity. At baseline he does not use a assistive device. No other complaints at this time. Initial VS at presentation: 97.6? F, HR 72, R 18, 145/71, and 99% on RA. ED workup showed: No leukocytosis, hemoglobin 11.2 (near baseline, last 12.2 in 2022), creatinine 1.2 and GFR 58, glucose 100. XR of the hip showed fracture of the greater trochanter of the proximal left femur. CXR showed no acute cardiopulmonary disease. CT of the hip showed mild proximal distraction of a comminuted likely avulsion fracture at the left greater trochanter and suggestion of possible chronic partial tear of the proximal left hamstring tendons. 08/30/23: (Copy forward from chart) Pt is a 82-year-old male who is here for left hip fracture. Patient was seen with daughter at bedside. He states he is doing well and his pain is under control. He has been up and walking to the bathroom and femoral doing okay. He denies chest pain, shortness he breath, fevers, chills, nausea or vomiting. He is eating and drinking okay. Last bowel movement was today. We had a long discussion about going home versus rehab. Patient and daughter want to see how
[2023-09-01 13:40] VITALS: BP 140/61; PULSE 87; RESP 17; TEMP 36.9; O2SAT 100
[2023-09-01 17:59] VITALS: TEMP 37.1
[2023-09-01] MEDS: ACETAMINOPHEN 325 MG TABLET 650 MG PO (18:14)
[2023-09-01 20:11] VITALS: BP 110/49; PULSE 72; RESP 17; TEMP 36.5; O2SAT 97
[2023-09-01] MEDS: MELATONIN 5 MG TABLET PO (21:19)
[2023-09-02 04:49] LABS: Hematocrit 29.5 % (42.0-52.0); Hemoglobin 9.5 g/dL (14.0-18.0); Mean Corpuscular HGB Conc 32.2 g/dl (32-36); Mean Corpuscular Hemoglobin 31.4 pg (26-34); Mean Corpuscular Volume 97.4 fl (80-100); Mean Platelet Volume 9.7 fl (7.4-10.4); Platelet Count Result 161 k/mm3 (150-375); Red Blood Count 3.03 M/mm3 (4.6-6.20); Red Cell Distribution Width 13.3 % (11.5-14.5)
[2023-09-02 05:03] LABS: Alanine Aminotransferase 18 U/L (6-50); Albumin Level 3.5 g/dL (3.5-5.1); Alkaline Phosphatase 61 U/L (38-126); Anion Gap 4 mmol/L (4-12); Aspartate Amino Transferase 31 U/L (17-59); Bilirubin,Total 0.7 mg/dL (0.2-1.3); Blood Urea Nitrogen 22 mg/dL (9-20); Calcium 8.8 mg/dL (8.4-10.2); Carbon Dioxide 28 mmol/L (22-30); Chloride 104 mmol/L (98-107); Estimated CRCL calculation 38 ml/min; Estimated Glomerular Filt Rate 58; Glucose 106 mg/dL (65-110); Sodium 136 mmol/L (137-145)
[2023-09-02 05:13] VITALS: BP 144/57; PULSE 78; RESP 18; TEMP 36.6; O2SAT 97
--- NOTE | 2023-09-02 06:44 | PM.PNORT ---
Progress Note: A&P Assessment and Plan (1) Fracture of greater trochanter of left femur: Qualifiers: Encounter type: initial encounter Fracture alignment: nondisplaced Fracture type: closed Qualified Code(s): S72.115A - Nondisplaced fracture of greater trochanter of left femur, initial encounter for closed fracture Code(s): S72.112A - Displaced fracture of greater trochanter of left femur, initial encounter for closed fracture Status: Acute Assessment and Plan: Patient has greater trochanteric fracture. Does not appear to extend across the trochanter. Will continue to treat him non operatively. He is making slow progress will need placement. Follow-up in a month for x-rays. Subjective Subjective Date/Time Seen: 09/02/23 06:44 Principal diagnosis: Greater trochanteric fracture Left. Review of Systems Review of Systems: All systems reviewed & are unremarkable except as noted in HPI and below Constitutional: Constitutional: Reports as per HPI and Reports no additional constitutional complaints Eyes: Eyes: Reports as per HPI and Reports no additional eye complaints ENT: Reports system reviewed and no additional complaints, except as documented and Reports as per HPI Cardiovascular: Cardiovascular: Reports as per HPI and Reports no additional cardiovascular complaints Respiratory: Respiratory: Reports as per HPI and Reports no additional respiratory complaints Gastrointestinal: Gastrointestinal: Reports as per HPI and Reports no additional gastrointestinal complaints Genitourinary: Genitourinary: Reports no additional male genitourinary complaints and Reports as per HPI Musculoskeletal: Musculoskeletal: Reports no additional musculoskeletal complaints and Reports as per HPI Integumentary/Breasts: Skin/Breast: Reports system reviewed and no additional complaints, except as docu and Reports as per HPI Neurologic: Reports system reviewed and no additional complaints, except as documented and Reports as per HPI Psychiatric: Psychiatric: Reports no additional psychiatric complaints and Reports as per HPI Exam Narrative: Neurovascular intact. Wiggles toes. Pain with manipulation of the hip. Objective Data Vital Signs Vital Signs: Vital Signs - 24 hr 09/01/23 08:00 09/01/23 13:40 09/01/23 17:59 Temperature 98.5 F 98.8 F Pulse Rate 87 Respiratory Rate 17 Blood Pressure 140/61 Pulse Oximetry 100 Oxygen Delivery Room Air 09/01/23 20:11 09/02/23 05:13 Temperature 97.7 F 97.8 F Pulse Rate 72 78 Respiratory Rate 17 18 Blood Pressure 110/49 L 144/57 H Pulse Oximetry 97 97 Oxygen Delivery Intake/Output Intake/Output: Intake & Output 08/30/23 08/31/23 09/01/23 09/02/23 23:59 23:59 23:59 23:59 Intake Total 2266 002 2098 Output Total 200 400 150 Balance 8678 194 4182 Meds/Results Medications: Active Medications Generic Name Dose Route Start Last Admin Trade Name Freq PRN Reason Stop Dose Admin Acetaminophen 650 mg 08/29/23 15:05 09/01/23 18:14 Acetaminophen 325 Mg Tablet PO 650 mg Q4H PRN Administration Mild Pain (1-3) or Fever Hydrocodone Bitart/Acetaminophen 1 tab 08/29/23 15:05 Hydrocodone/Acetaminophen (*Crx) 5-325 Mg Tablet PO Q4H PRN Pain Rated 4-6 Amlodipine Besylate 5 mg 08/30/23 09:00 09/01/23 09:39 Amlodipine Besylate 5 Mg Tablet PO 5 mg DAILY EVELYN Administration Aspirin 81 mg 08/30/23 09:00 09/01/23 08:25 Aspirin 81 Mg Enteric Tablet PO 09/29/23 08:59 81 mg DAILY EVELYN Administration Atorvastatin Calcium 80 mg 08/30/23 09:00 09/01/23 08:25 Atorvastatin 40 Mg Tablet PO 80 mg DAILY EVELYN Administration Ezetimibe 10 mg 08/30/23 09:00 09/01/23 08:25 Ezetimibe 10 Mg Tablet PO 10 mg DAILY EVELYN Administration Enoxaparin Sodium 40 mg 08/30/23 12:50 09/01/23 08:25 Enoxaparin 40 Mg/0.4 Ml Syringe SUB-Q 40 mg DAILY EVELYN Administration Melatonin 5 mg
[2023-09-02 08:45] VITALS: BP 133/61; PULSE 75; O2SAT 96
[2023-09-02] MEDS: amLODIPine BESYLATE 5 MG TABLET PO (08:47)
[2023-09-02] MEDS: ASPIRIN 81 MG ENTERIC TABLET PO (08:47)
[2023-09-02] MEDS: PANTOPRAZOLE 40 MG TABLET PO (08:47)
[2023-09-02] MEDS: EZETIMIBE 10 MG TABLET PO (08:47)
[2023-09-02] MEDS: ATORVASTATIN 40 MG TABLET 80 MG PO (08:47)
[2023-09-02] MEDS: ENOXAPARIN 40 MG/0.4 ML SYRINGE SUB-Q (08:48)
[2023-09-02 14:38] VITALS: BP 122/53; PULSE 76; RESP 18; TEMP 36.9; O2SAT 99
--- NOTE | 2023-09-02 15:10 | PM.IMPN ---
Progress Note: A&P Assessment and Plan (1) Fracture of greater trochanter of left femur: Qualifiers: Encounter type: initial encounter Fracture alignment: nondisplaced Fracture type: closed Qualified Code(s): S72.115A - Nondisplaced fracture of greater trochanter of left femur, initial encounter for closed fracture Code(s): S72.112A - Displaced fracture of greater trochanter of left femur, initial encounter for closed fracture Status: Acute Assessment and Plan: 08/31/23: Continue PT and OT Care coordination working on rehab needs Continue pain control. 09/01/23: No change to current treatment plan (2) Hypertension: Qualifiers: Hypertension type: primary hypertension Qualified Code(s): I10 - Essential (primary) hypertension Code(s): I10 - Essential (primary) hypertension Status: Acute Assessment and Plan: 08/31/23: Continue amiodarone 09/01/23: No change to current treatment plan (3) Chronic anemia: Code(s): D64.9 - Anemia, unspecified Status: Acute Assessment and Plan: 08/31/23: Hgb 9.5 Continue to monitor 09/01/23: No change to current treatment plan (4) Gastritis: Code(s): K29.70 - Gastritis, unspecified, without bleeding Status: Acute Assessment and Plan: 08/31/23: Continue Protonix 09/01/23: No change to current treatment plan Subjective Date/time seen: 09/02/23 15:10 Interval history: Interval history: 08/29/23:(copy forward from chart) 82 y/o M presents here with for further evaluation of a left hip/femur fx post-fall with PMH of HTN, HLD, osteoarthritis, and PUD. The patient presents here via EMS from [facility] for further evaluation of a left hip/femur fracture post-ground level fall. Patient reports that he was walking his dog this morning when his dog took off after a squirrel which caused him to lose his balance. The patient fell onto his left side landing on his left hip. Denies head strike or loss of consciousness. Was able to ambulate post fall, however weight-bearing and movement do exacerbate his left hip pain. Imaging at [facility] showed a fracture of the greater trochanter of the proximal left femur and mild osteoarthritis of the hips. Patient reports he is not on a blood thinner. No numbness or tingling to the affected extremity. At baseline he does not use a assistive device. No other complaints at this time. Initial VS at presentation: 97.6? F, HR 72, R 18, 145/71, and 99% on RA. ED workup showed: No leukocytosis, hemoglobin 11.2 (near baseline, last 12.2 in 2022), creatinine 1.2 and GFR 58, glucose 100. XR of the hip showed fracture of the greater trochanter of the proximal left femur. CXR showed no acute cardiopulmonary disease. CT of the hip showed mild proximal distraction of a comminuted likely avulsion fracture at the left greater trochanter and suggestion of possible chronic partial tear of the proximal left hamstring tendons. 08/30/23: (Copy forward from chart) Pt is a 82-year-old male who is here for left hip fracture. Patient was seen with daughter at bedside. He states he is doing well and his pain is under control. He has been up and walking to the bathroom and femoral doing okay. He denies chest pain, shortness he breath, fevers, chills, nausea or vomiting. He is eating and drinking okay. Last bowel movement was today. We had a long discussion about going home versus rehab. Patient and daughter want to see how he does and if he still does well tomorrow maybe he could be discharged home. He has no stairs in his house. He does live alone 08/31/23: On examination today patient is alert and oriented x3, lying in the bed. Patient denies any fever, chills, nausea, vomiting, diarrhea, abdominal pain, chest pain, shortness of breath. Patient endorses mild pain in left leg. Labs today were unremarkable. PT and OT recommending SNF. Case coordination followi
[2023-09-02 20:19] VITALS: BP 115/53; PULSE 75; RESP 17; TEMP 36.7; O2SAT 98
[2023-09-02] MEDS: MELATONIN 5 MG TABLET PO (20:52)
[2023-09-03 04:47] VITALS: BP 107/52; PULSE 64; RESP 17; TEMP 36.9; O2SAT 99
--- NOTE | 2023-09-03 07:04 | PM.DS ---
DS: Admitting Diagnosis Discharge Date 09/03/23 Admitting Diagnosis Fracture of greater trochanter of left femur Hypertension DS: Discharge Diagnosis Discharge Diagnosis (1) Fracture of greater trochanter of left femur: Qualifiers: Encounter type: initial encounter Fracture alignment: nondisplaced Fracture type: closed Qualified Code(s): S72.115A - Nondisplaced fracture of greater trochanter of left femur, initial encounter for closed fracture Code(s): S72.112A - Displaced fracture of greater trochanter of left femur, initial encounter for closed fracture Status: Acute (2) Hypertension: Qualifiers: Hypertension type: primary hypertension Qualified Code(s): I10 - Essential (primary) hypertension Code(s): I10 - Essential (primary) hypertension Status: Acute (3) Chronic anemia: Code(s): D64.9 - Anemia, unspecified Status: Acute (4) Gastritis: Code(s): K29.70 - Gastritis, unspecified, without bleeding Status: Acute DS: Summary Hospital Course Reason for hospitalization: Fracture of greater trochanter of left femur Hypertension Hospital Course: 08/29/23:(copy forward from chart) 82 y/o M presents here with for further evaluation of a left hip/femur fx post-fall with PMH of HTN, HLD, osteoarthritis, and PUD. The patient presents here via EMS from [facility] for further evaluation of a left hip/femur fracture post-ground level fall. Patient reports that he was walking his dog this morning when his dog took off after a squirrel which caused him to lose his balance. The patient fell onto his left side landing on his left hip. Denies head strike or loss of consciousness. Was able to ambulate post fall, however weight-bearing and movement do exacerbate his left hip pain. Imaging at [facility] showed a fracture of the greater trochanter of the proximal left femur and mild osteoarthritis of the hips. Patient reports he is not on a blood thinner. No numbness or tingling to the affected extremity. At baseline he does not use a assistive device. No other complaints at this time. Initial VS at presentation: 97.6? F, HR 72, R 18, 145/71, and 99% on RA. ED workup showed: No leukocytosis, hemoglobin 11.2 (near baseline, last 12.2 in 2022), creatinine 1.2 and GFR 58, glucose 100. XR of the hip showed fracture of the greater trochanter of the proximal left femur. CXR showed no acute cardiopulmonary disease. CT of the hip showed mild proximal distraction of a comminuted likely avulsion fracture at the left greater trochanter and suggestion of possible chronic partial tear of the proximal left hamstring tendons. 08/30/23: (Copy forward from chart) Pt is a 82-year-old male who is here for left hip fracture. Patient was seen with daughter at bedside. He states he is doing well and his pain is under control. He has been up and walking to the bathroom and femoral doing okay. He denies chest pain, shortness he breath, fevers, chills, nausea or vomiting. He is eating and drinking okay. Last bowel movement was today. We had a long discussion about going home versus rehab. Patient and daughter want to see how he does and if he still does well tomorrow maybe he could be discharged home. He has no stairs in his house. He does live alone 08/31/23: On examination today patient is alert and oriented x3, lying in the bed. Patient denies any fever, chills, nausea, vomiting, diarrhea, abdominal pain, chest pain, shortness of breath. Patient endorses mild pain in left leg. Labs today were unremarkable. PT and OT recommending SNF. Case coordination following for rehab placement. 09/01/23: No new complaints today. Labs today revealed Hgb 8.9, otherwise unremarkable. Case coordination working on SNF placement. Family is wanting SNF closer to [place]. 09/02/23: No new complaints today. SNF approved and plan is for patient to leave tomorrow morning. Family will drive vt
[2023-09-03 07:37] VITALS: O2SAT 96
[2023-09-03] MEDS: amLODIPine BESYLATE 5 MG TABLET PO (08:01)
[2023-09-03] MEDS: PANTOPRAZOLE 40 MG TABLET PO (08:01)
[2023-09-03] MEDS: ENOXAPARIN 40 MG/0.4 ML SYRINGE SUB-Q (08:01)
[2023-09-03] MEDS: EZETIMIBE 10 MG TABLET PO (08:01)
[2023-09-03] MEDS: ASPIRIN 81 MG ENTERIC TABLET PO (08:01)
[2023-09-03] MEDS: ATORVASTATIN 40 MG TABLET 80 MG PO (08:04)
== END 2023-09-03 08:55 | DRG 536 ==
LOC: ANHED 15:05 → ANH2MED 15:51
PROVIDERS: Physician Assistant; Student in an Organized Health Care Education/Training Program; Admitting Provider Internal Medicine; Emergency Provider Family Medicine; PCP Internal Medicine; Visit Provider Nurse Practitioner Acute Care
DX: S72.112A Displaced fracture of greater trochanter of left femur, initial encounter for closed fracture (principal); I10 Essential (primary) hypertension; E78.5 Hyperlipidemia, unspecified; D64.9 Anemia, unspecified; K29.70 Gastritis, unspecified, without bleeding; H81.09 Meniere's disease, unspecified ear; M19.90 Unspecified osteoarthritis, unspecified site; W19.XXXA Unspecified fall, initial encounter; Z79.82 Long term (current) use of aspirin; Z87.11 Personal history of peptic ulcer disease
CPT/HCPCS: 36415; 71045; 73502; 73700; 80048; 80053; 83735; 85014; 85018; 85025; 85027; 85610; 93005; 97110; 97161; 97165; 97530; 97535; 99285; A9270; J1650